=== PATIENT | male | born 1945 | race Caucasian/White ===

== ENCOUNTER 2017-06-18 19:48 | Observation (INO) | payer BC ==
[2017-06-18] MEDS ORDERED: NS 0.9% 1000 ML* 1,000 ML IV ONE (20:16)
--- NOTE | 2017-06-18 20:43 | RAD ---
INDICATION: Syncope COMPARISON: None TECHNIQUE: An AP portable view obtained at 2027 hours is submitted. FINDINGS: Bones/Soft Tissues: There are no acute bony findings. Cardiomediastinal: The cardiomediastinal silhouette is normal. Lungs: There are no infiltrates. Pleura: There are no pleural effusions. Other: None IMPRESSION: NO ACTIVE DISEASE
--- NOTE | 2017-06-18 20:43 | RAD ---
INDICATION: Syncope COMPARISON: CT September 27, 2013 TECHNIQUE: Noncontrast axial source images were acquired from the skull base to the vertex. FINDINGS: Ventricles/sulci: There is cortical atrophy with compensatory dilatation of the CSF spaces. Brain parenchyma: There are no acute appearing focal parenchymal findings. There is encephalomalacia in remote right frontal and right occipital infarcts. There is a tiny lacunar type infarct in the right caudate nucleus. There are no additional significant focal parenchymal findings. Intracranial hemorrhage:None. Extra-axial spaces: There are no abnormal extra axial fluid collections or evidence of extra-axial mass. Calvarium: There is no calvarial fracture or other calvarial abnormality. Scalp: There is no evidence of scalp or extracalvarial soft tissue abnormality. Paranasal sinuses/mastoid: The paranasal sinuses and mastoid air cells are clear. Other: None. IMPRESSION: REMOTE RIGHT FRONTAL AND OCCIPITAL INFARCTS. NO ACUTE FINDINGS
[2017-06-18 21:04] LABS: ABS Basophils 0 10^3/ul (0-0.2); ABS Eosinophils 0.3 10^3/ul (0-0.6); ABS Lymphocytes 2.1 10^3/ul (1.0-4.8); ABS Monocytes 0.7 10^3/ul (0-0.8); ABS Neutrophils 6.9 10^3/ul (1.5-7.7); ABS Nucleated RBC 0 10^3/ul; Eosinophil % 3.4 % (0-6); Hematocrit 39 % (42-52); Lymphocyte % 20.6 % (25-47); Mean Corpuscular HGB Conc 34 g/dl (31-36); Mean Corpuscular Hemoglobin 32 pg (27-31); Mean Corpuscular Volume 94 fL (80-94); Mean Platelet Volume 8.5 um3 (7.4-10.4); Nucleated Red Blood Cells % 0; Platelet Count 223 10^3/ul (150-450); Red Blood Count 4.12 10^6/ul (4.0-5.4); Red Cell Distribution Width 15 % (10.5-15)
[2017-06-18 21:16] LABS: INR 1.1 (0.77-1.02)
[2017-06-18 21:17] LABS: EGFR Non-African American 42.1 (>60)
--- NOTE | 2017-06-18 21:36 | ED ---
Jaren Yap Tecjoon, scribnicholas for Dada Sánchez MD on 06/18/17 at 2014 . 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 Patients seizure was witnessed by Dr. Nava. Patient has no history of seizure, but does have a hx of CVA. Patient states that he [place] when he suddenly felt dizzy. Patients cites that patient did not shake, but curled up and passed out. There was no postictal period nor any urinary incontinence. The pain is rated 0/ 10 in severity. Symptoms aggravated by nothing. Symptoms alleviated by nothing. On arrival, patient states that he is asymptomatic, aside from some slowed speech. - History Of Current Complaint Chief Complaint: EDSeizure Time Seen by Provider: 06/18/17 19:56 Hx Obtained From: Patient Onset/Duration: Still Present Timing: Intermittent Episode Lasting Context: Witnessed, Loss Of Consciousness Activity At Onset: At Rest Associated Head Trauma: No Aggravating Factor(s): Nothing Alleviating Factor(s): Nothing Associated Signs And Symptoms: Negative - urinary incontinence, Other - dizziness, LOC - Allergies/Home Medications Allergies/Adverse Reactions: Allergies Allergy/AdvReac Type Severity Reaction Status Date / Time indomethacin Allergy Unknown Verified 06/18/17 19:56 Reaction Details Sulfa (Sulfonamide Allergy Rash And Verified 06/18/17 19:56 Antibiotics) Itching Home Medications: Home Medications Calcium Carbonate CHEW TAB* [Tums*] 1,000 mg PO BID 06/18/17 [History Confirmed 06/18/17] Donepezil TAB* [Aricept 5 MG TAB*] 5 mg PO DAILY 06/18/17 [History Confirmed 08/30] Escitalopram (NF) [Lexapro 10 mg (NF)] 10 mg PO DAILY 06/18/17 [History Confirmed 06/18/17] Insulin GLARGINE(*) [Lantus(*)] 36 units SUBCUT QAM 06/18/17 [History Confirmed 06/18/17] Potassium Chlor TAB* [Klor Con ER TAB*] 10 meq PO DAILY 06/18/17 [History Confirmed 06/18/17] metFORMIN* [Glucophage 500 MG TAB *] 1,000 mg PO QPM 06/18/17 [History Confirmed 06/18/17] metFORMIN* [Glucophage 500 MG TAB *] 500 mg PO QAM 06/18/17 [History Confirmed 06/18/17] PMH/Surg Hx/FS Hx/Imm Hx Previously Healthy: No Endocrine/Hematology History: Reports: Hx Anticoagulant Therapy - Pradaxa, Hx Diabetes Denies: Hx Thyroid Disease Cardiovascular History: Reports: Hx Coronary Artery Disease, Hx Hypercholesterolemia - HLD, Hx Hypertension - PT. STATES CONTROLLED WITH MEDS, Hx Peripheral Vascular Disease - FEM BYPASS RIGHT LEG, Other Cardiovascular Problems/Disorders - A FIB Denies: Hx Congestive Heart Failure, Hx Deep Vein Thrombosis, Hx Myocardial Infarction, Hx Pacemaker/ICD Respiratory History: Reports: Hx Sleep Apnea - DX 2014, Other Respiratory Problems/Disorders - FORMER SMOKER Denies: Hx Asthma, Hx Chronic Obstructive Pulmonary Disease (COPD), Hx Lung Cancer, Hx Pneumonia, Hx Pulmonary Embolism GI History: Reports: Hx Irritable Bowel - DIARRHEA Denies: Hx Gall Bladder Disease, Hx Gastrointestinal Bleed, Hx Ulcer, Hx Urosepsis History: Denies: Hx Kidney Stones, Hx Renal Disease Musculoskeletal History: Reports: Hx Arthritis - OSTEOARTHRITIS, Hx Osteoporosis , Other Musculoskeletal History - HX OF GOUT Comment Only: Hx Rheumatoid Arthritis - R/O Sensory History: Reports: Hx Cataracts - LEFT, Hx Contacts or Glasses - READING Denies: Hx Hearing Aid Opthamlomology History: Reports: Hx Cataracts - LEFT, Hx Contacts or Glasses - READING Neurological History: Denies: Hx Dementia, Hx Migraine, Hx Seizures, Hx Transient Ischemic Attacks (TIA) Psychiatric History: Reports: Hx Anxiety Denies: Hx Depression, Hx Panic Disorder, Hx Schizophrenia, Hx Bipolar Disorder - Surgical History Surgery Procedure, Year, and Place: POPLITEAL BYPASS RLE WITH VEIN HARVENT FROM LEFT ARM @ [facility] ON 04/14/2013. RIGHT KNEE SCOPING [facility] [place] 2003. ANGIOGRAM WITH STAR CLOSURE-08/21/2013 and 07/23/14-INFO ENCLOSED Hx Anesthesia Reactions: No Infectious Disease History: No Infectious Disease History: Reports: Hx Shingles - hx of x2 Denies: Hx Clostridium Difficile, Hx Hepatitis, Hx Human Immunodeficiency Virus (HIV), Hx of Known/Suspected MRSA, Hx Tuberculosis, Hx Known/Suspected VRE , Hx Known/Suspected VRSA, History Other Infectious Disease, Traveled Outside the [place] in Last 30 Days - Family History Known Family History: Positive: Cardiac Disease, Hypertension - Social History Lives: With Family Alcohol Use: None Hx Substance Use: No Substance Use Type: Reports: None Hx Tobacco Use: Yes Smoking Status (MU): Former Smoker Type: Cigarettes Amount Used/How Often: 1 PPD Length of Time of Smoking/Using Tobacco: 40 YRS Have You Smoked in the Last Year: No Review of Systems Negative: Fever Negative: incontinence Neurological: Other - dizziness Positive: Syncope All Other Systems Reviewed And Are Negative: Yes Physical Exam - Summary Physical Exam Summary: VITAL SIGNS: Reviewed. GENERAL: Patient is a well-developed and nourished male who is lying comfortable in the stretcher. Patient is not in any acute respiratory distress. HEAD AND FACE: No signs of trauma. No ecchymosis, hematomas or skull depressions. No sinus tenderness. EYES: PERRLA, EOMI x 2, No injected conjunctiva, no nystagmus. EARS: Hearing grossly intact. Ear canals and tympanic membranes are within normal limits. MOUTH: Oropharynx within normal limits. NECK: Supple, trachea is midline, no adenopathy, no JVD, no carotid bruit, no c- spine tenderness, neck with full ROM. CHEST: Symmetric, no tenderness at palpation LUNGS: Clear to auscultation bilaterally. No wheezing or crackles. CVS: Regular rate and rhythm, S1 and S2 present, no murmurs or gallops appreciated. ABDOMEN: Abd distension EXTREMITIES: +1-2 bilateral pitting edema NEURO: Alert and oriented x 3. No acute neurological deficits. Speech is normal and follows commands. SKIN: Dry and warm Triage Information Reviewed: Yes Vital Signs On Initial Exam: Initial Vitals Temp Pulse Resp BP Pulse Ox 96.8 F 58 12 128/51 92 06/18/17 19:51 06/18/17 19:51 06/18/17 19:51 06/18/17 19:51 06/18/17 19:51 Vital Signs Reviewed: Yes Diagnostics - Vital Signs Vital Signs Temp Pulse Resp BP Pulse Ox 06/18/17 19:51 96.8 F 58 12 128/51 92 - Laboratory Result Diagrams: 06/18/17 20:45 06/18/17 20:45 Lab Statement: Any lab studies that have been ordered have been reviewed, and results considered in the medical decision making process. - Radiology CXR Xray Interpretation: No Acute Changes - CXR reveals, per radiologist, IMPRESSION : NO ACTIVE DISEASE. ED physician has reviewed this radiology report. Radiology Interpretation Completed By: Radiologist - CT CT Brain CT Interpretation: Positive (See Comments) - CT Brain reveals, per radiologist, IMPRESSION: REMOTE RIGHT FRONTAL AND OCCIPITAL INFARCTS. NO ACUTE FINDINGS ED physician has reviewed this radiology report. 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 Patient has no history of seizure, but does have a hx of CVA. Patient states that he was having dinner [place] the [employer] [place] when he suddenly felt dizzy. Patients cites that patient did not shake, but curled up and passed out. An EKG, taken 2038, reveals Sinus Bradycardia (56 BPM), Normal axis, normal interval, no ischemic changes. CXR reveals, per radiologist, IMPRESSION: NO ACTIVE DISEASE. ED physician has reviewed this radiology report. CT Brain reveals, per radiologist, IMPRESSION: REMOTE RIGHT FRONTAL AND OCCIPITAL INFARCTS. NO ACUTE FINDINGS. ED physician has reviewed this radiology report. Bloodwork Obtained. Urinalysis Obtained. We discussed patient care with Dr. Bautista (Hospitalist) and they agreed to admit the patient. Patient will be admitted with a dx of syncope. The patient is agreeable with this plan. - Diagnoses Provider Diagnoses: Syncope - Physician Notifications Discussed Care of Patient With: Minor Bautista - Hospitalist Time Discussed With Above Provider: 21:33 - We discussed patient care with Dr. Bautista (Hospitalist) and they agreed to admit the patient Instructed by Provider To: Admit As Inpatient Discharge - Sign-Out/Discharge Documenting (check all that apply): Discharge - admitted - Discharge Plan Condition: Stable Disposition: ADMITTED TO [facility] Referrals: Sera Tao MD [Primary Care Provider] - The documentation as recorded by the Jaren haas Tecjoon accurately reflects the service I personally performed and the decisions made by mi, Dada Sánchez MD.
[2017-06-18] MEDS ORDERED: Dextrose 50% Syringe 50 ML* 25 GM/50 ML SYRINGE IV PUSH PRN (23:05)
[2017-06-19] MEDS: CMCS:Dabigatran CAP(NF) 150 MG CAP PO SCH ×3 (00:50→22:00)
[2017-06-19] MEDS: Insulin LISPRO* 1 UNITS UNIT SUBCUT SCH ×3 (07:50→16:52)
[2017-06-19] MEDS ORDERED: Magnesium Sulfate 2 GM IV* 2 GM/50 ML BAG IVPB ONE (08:21)
[2017-06-19] MEDS: Insulin GLARGINE(*) 1 UNITS UNIT SUBCUT SCH (08:21)
[2017-06-19] MEDS: Citalopram TAB* 20 MG PO SCH (08:22)
[2017-06-19] MEDS: Calcium Carbonate CHEW TAB* 500 MG (TUMS) PO SCH ×2 (08:22→22:01)
[2017-06-19] MEDS: Bumetanide TAB* 1 MG PO SCH (08:22)
[2017-06-19] MEDS: Valsartan TAB* 160 MG PO SCH (08:22)
[2017-06-19] MEDS: Hydrochlorothiazide TAB* 25 MG PO SCH (08:22)
[2017-06-19] MEDS: Magnesium Oxide TAB* 400 MG PO SCH (08:23)
[2017-06-19] MEDS: Donepezil TAB* 5 MG PO SCH (08:23)
[2017-06-19] MEDS: metFORMIN* 500 MG TAB PO SCH (08:23)
[2017-06-19] MEDS: Allopurinol TAB* 300 MG PO SCH (08:23)
[2017-06-19] MEDS: Lactobacillus Acidophilu (GG)* 1 CAP CAP PO SCH (08:23)
[2017-06-19] MEDS: amLODIPine TAB* 5 MG PO SCH (08:23)
[2017-06-19] MEDS: Potassium Chlor TAB* 10 MEQ TAB.ER PO SCH (08:23)
[2017-06-19] MEDS: Atenolol TAB* 25 MG PO SCH (08:36)
[2017-06-19] MEDS ORDERED: Atenolol TAB* 50 MG PO SCH (09:00)
[2017-06-19] MEDS ORDERED: CMCS:Dabigatran CAP(NF) 150 MG CAP PO SCH (09:00)
[2017-06-19 11:06] LABS: Urine Appearance Clear; Urine Blood Negative (Negative); Urine Color Straw; Urine Ketones Negative (Negative); Urine Protein Negative (Negative); Urine Specific Gravity 1.006 (1.010-1.030); Urine Urobilinogen Negative (Negative)
--- NOTE | 2017-06-19 12:04 | PN ---
Subjective Date of Service: 06/19/17 Interval History: Pt had a syncopal episodes last night at 19:30 [place] and waiting for his green party to arrive to have dinner. He felt hot and flushed and dizzy before he collapsed. LOC for approx 30 sec then recovered without confusion but R facial droop was noted. Before the even pt did not anything for over 8 hrs. Had no alcohol. BG at 109 checked by EMT's Telem showing sinus rishi today with PVC's , Atenolol's dose was held Objective Active Medications: Allopurinol (Zyloprim Tab*) 300 mg PO QAM [facility] Last Admin: 06/19/17 08:23 Dose: 300 mg Amlodipine Besylate (Norvasc Tab*) 5 mg PO DAILY [facility] Last Admin: 06/19/17 08:23 Dose: 5 mg Atenolol (Tenormin Tab*) 25 mg PO QAM [facility] Last Admin: 06/19/17 08:36 Dose: Not Given Atorvastatin Calcium (Lipitor*) 20 mg PO QPM [facility] Bumetanide (Bumex Tab*) 1 mg PO DAILY [facility] Last Admin: 06/19/17 08:22 Dose: 1 mg Calcium Carbonate (Tums*) 1,000 mg PO BID [facility] Last Admin: 06/19/17 08:22 Dose: 1,000 mg Citalopram Hydrobromide (Celexa Tab*) 20 mg PO DAILY [facility] Last Admin: 06/19/17 08:22 Dose: 20 mg Dabigatran (Pradaxa Cap(Nf)) 150 mg PO BID [facility] Last Admin: 06/19/17 08:22 Dose: 150 mg Dextrose (D50w Syringe 50 Ml*) 12.5 gm IV PUSH .FOR FS < 60 - SS PRN PRN Reason: FS < 60 Donepezil HCl (Aricept Tab*) 5 mg PO DAILY [facility] Last Admin: 06/19/17 08:23 Dose: 5 mg Hydrochlorothiazide (Hydrodiuril Tab*) 12.5 mg PO QAM [facility] Last Admin: 06/19/17 08:22 Dose: 12.5 mg Insulin Glargine (Lantus(*)) 36 units SUBCUT QAM [facility] Last Admin: 06/19/17 08:21 Dose: 36 unit Insulin Human Lispro (Humalog*) 0 units SUBCUT AC [facility] PRN Reason: Protocol Last Admin: 06/19/17 07:50 Dose: Not Given Lactobacillus Rhamnosus (Culturelle*) 1 cap PO DAILY [facility] Last Admin: 06/19/17 08:23 Dose: 1 cap Magnesium Oxide (Magox 400 Tab*) 400 mg PO DAILY [facility] Last Admin: 06/19/17 08:23 Dose: 400 mg Metformin HCl (Glucophage*) 500 mg PO QAM [facility] Last Admin: 06/19/17 08:23 Dose: 500 mg Metformin HCl (Glucophage*) 1,000 mg PO QPM [facility] Potassium Chloride (Klor Con Er Tab*) 10 meq PO DAILY [facility] Last Admin: 06/19/17 08:23 Dose: 10 meq Valsartan (Diovan Tab*) 320 mg PO QAM [facility] Last Admin: 06/19/17 08:22 Dose: 320 mg Vital Signs - 8 hr 06/19/17 06/19/17 07:26 11:09 Temperature 97.7 F 97.3 F Pulse Rate 53 52 Respiratory 20 20 Rate Blood Pressure 137/51 122/48 (mmHg) O2 Sat by Pulse 96 96 Oximetry Oxygen Devices in Use Now: None Appearance: 71 yo M in nAD, AAOx3 Eyes: No Scleral Icterus, PERRLA Ears/Nose/Mouth/Throat: NL Teeth, Lips, Gums, Mucous Membranes Moist Neck: NL Appearance and Movements; NL JVP, Trachea Midline Respiratory: Symmetrical Chest Expansion and Respiratory Effort, Clear to Auscultation Cardiovascular: NL Sounds; No Murmurs; No JVD, RRR Abdominal: NL Sounds; No Tenderness; No Distention, No Hepatosplenomegaly Lymphatic: No Cervical Adenopathy Extremities: No Clubbing, Cyanosis, - - trace ankle edema b/l Skin: No Nodules or Sclerosis Neurological: Alert and Oriented x 3, NL Muscle Strength and Tone, - - Slight R facial droop Result Diagrams: 06/18/17 20:45 06/18/17 20:45 Assess/Plan/Problems-Billing Assessment: 71 yo M with h/o PAF, subsequent cardioembolic CVA with hemorrhagic extension in 2013, DM2 with CKD3 (suspect due to DM2)presents after a syncopal episode - Patient Problems (1) Syncope and collapse Comment: pt had prodromal feeling of flushed and dizziness had been bradycardic and his Mg is low ?new R facial droop Differential: vaso-vagal(has not eatan for a long time), CVA, arrythmia Consulted neurology. Also Dr. Deleon will see pt from cardiology in AM. Echo ordered (2) DM2 (diabetes mellitus, type 2) Comment: cont metformin , Lantus ,ISS (3) Bradycardia Comment: ? if symptomatic Will ambulate pt and record max HR Cardiology consult ordered For now cont Atenolol with holfd parameters (4) Hypomagnesemia Comment: replacing PO/IV (5) FLORIN (obstructive sleep apnea) Comment: Pt stated that he feels very tired every AM. 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
--- NOTE | 2017-06-19 15:19 | CONS ---
CC: Dr. Sera Tao NEUROLOGY CONSULTATION REPORT: DATE OF CONSULT: 06/19/17 REQUESTING PHYSICIAN: Dr. Jones. PRIMARY CARE PHYSICIAN: Dr. Sera Tao. REASON FOR CONSULT: Episode of loss of consciousness. HISTORY OF PRESENT ILLNESS: The patient is a 71-year-old right-handed male with history of previous strokes, who presented last night with an episode of loss of consciousness. The patient was in the [place] with his and friends. He had not eaten anything after breakfast until the dinnertime. One of the guests was arriving late so the dinner was delayed. The patient started to feel hot at some point and hungry and while he was sitting on a chair, he gradually felt dizzy. Apparently, he then slumped forward and had a brief duration of loss of consciousness was very short. He seemed to have a bit of tensing up of the upper extremities as he lost consciousness with some jerky movements. He regained consciousness quickly (he himself even thinks that he did not completely loss consciousness) and there was no postictal confusion. He was brought to the hospital; there was a question of some facial droop on the right side, I think first noted by the triage nurse in the ED. The patient has a history of stroke, first one about 4 years ago which presented with left hemianopia. In the past few months also, it was noted that he was having more difficulty with his speech such as difficulty with finding words and another MRI at that point revealed another new stroke in the frontal area. He is on anticoagulation. PAST MEDICAL HISTORY: 1. As mentioned above, the history is significant for previous strokes. 2. Hypercholesterolemia. 3. Hypertension. 4. Obstructive sleep apnea. 5. History of problem with memory, currently on Aricept. 6. History of cataracts. 7. Peripheral vascular disease. PAST SURGICAL HISTORY: 1. History of femoropopliteal bypass. 2. Right knee arthroscopy. ALLERGIES: To INDOMETHACIN and SULFA. MEDICATIONS: 1. Lantus, 30 units 2. Atenolol 25 mg daily 3. Amlodipine 5 mg daily 4. Lexapro 10 mg daily 5. Metformin 1000 mg at night and 500 mg in the morning 6. Diovan 7. Aricept 5 mg daily 8. Allopurinol 300 mg daily 9. Dabigatran 150 mg twice a day FAMILY HISTORY: Positive for cardiac disease and hypertension. SOCIAL HISTORY: The patient lives with at home. He is a retired pharmacist. He does not drink or use drugs. History of 1 pack per day of smoking for 40 years in the past PHYSICAL EXAM: Blood pressure 122/48, temperature 97.3, respiratory rate 20, pulse rate 52. Heart has regular rate and rhythm. Lungs are clear. In general appearance, the patient is not in acute distress. On neurological exam , pupils are symmetric and reactive to light. Extraocular movements are intact. Visual castro are intact at least by confrontation even though there was a history of hemianopia on the left side after his stroke. Face has a slightly decreased nasolabial fold on the right side. V1 to V3 is intact to light touch and pinprick. Tongue is in midline. Palate elevates upwards. Strength is 5/5 throughout. There is no pronator drift. Rapid alternating movements are intact. Sensation is intact to light touch, pinprick, and vibration in the upper and lower extremities. Deep tendon reflexes are 2+ in the upper end of the extremities and are symmetric. DIAGNOSTIC STUDIES/LAB DATA: Sodium 138, potassium 4.7, BUN 31, creatinine 1.62. Hemoglobin A1c 6.6 that was back in December 2016. Glucose 131. Magnesium 1.5. INR 1.1. Imaging: The brain CT shows remote right frontal and occipital infarcts with no acute findings. ASSESSMENT AND PLAN: The patient is a 71-year-old male with history of previous stroke, who presented with an episode of loss of consciousness, which because of the presyncopal symptoms and the short duration of that, as well as lack of postictal symptoms is more consistent with syncope. He may also had a mild syncopal convulsion as a result. I do not have a high suspicion for a new stroke because of the history of this episode and the exam. About the facial droop on the right side, we looked at some of his pictures on his 's phone and it seems like the droop on the right nasolabial fold was present in the past , and it may have been exacerbated by hypoperfusion during the syncopal episodes. Similarly, I do not have a high suspicion that this episode was a primary seizure, but rather a syncopal convulsion as mentioned before. Maybe an EEG can be considered but can be done as outpatient. [id number]/[facility] #: [id number] [facility]
--- NOTE | 2017-06-19 15:36 | HP ---
CC: Dr. Sera Tao; Dr. Lovell. ADMISSION HISTORY AND PHYSICAL: DATE OF ADMISSION: 06/18/17 CHIEF COMPLAINT: Loss of consciousness. HISTORY OF PRESENT ILLNESS: Mr. Mondragon is a 71-year-old man with history of stroke and dementia who had a witnessed loss of consciousness [place]. Apparently, he was sitting with his and he states he felt dizzy and strange and then he moved his arms in a strange way upward and lost consciousness in the chair. A physician in the community was in the area in the room and helped lower him to the ground. No seizure activity was noted and he came back to the normal level of consciousness within 30 seconds to 1 minute. He had no postictal confusion. There was a concern about right facial droop that was seen by a nurse upon arrival to the emergency room. The endorse there was a subtle right facial droop in the lower cheek, which is now resolved. Patient has not had other episodes of loss of consciousness. No history of seizures. The patient has had a history of 3 strokes. The first 2 occurred shortly after being diagnosed with atrial fibrillation when he was not anticoagulated, around August of 2013. The third stroke visible only on MRI, occurred in December 2016 when the patient was already anticoagulated. 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 PAST SURGICAL HISTORY: He has surgical history of the right popliteal bypass in 2013. MEDICATIONS: Medication on admission are: 1. Allopurinol 300 mg p.o. q.a.m. 2. Norvasc 5 mg p.o. q. day. 3. Atenolol 25 mg p.o. q.a.m. 4. Lipitor 20 mg q.p.m. 5. Bumex 1 mg p.o. q.a.m. 6. Calcium carbonate 1000 mg p.o. b.i.d. 7. Pradaxa 150 mg p.o. b.i.d. 8. Aricept 5 mg p.o. q.h.s. 9. Lexapro 10 mg p.o. q. day. 10. Insulin Lantus 36 units subcu q. day. 11. Probiotic 1 tab p.o. q. day. 12. Glucophage 1000 mg p.o. in the evening and 500 mg p.o. in the morning. 13. Potassium chloride 10 mEq p.o. q. day. 14. Valsartan/hydrochlorothiazide 325/12.5 1 tab p.o. q.a.m. ALLERGIES: SULFA and INDOCIN. FAMILY HISTORY: Father of kidney failure. Mother at age 74 of sepsis. His brother had of melanoma. SOCIAL HISTORY: He is a retired pharmacist. He is . He has 2 children. His healthcare proxy is his . He quit tobacco in 2012 before his bypass surgery. He does not drink alcohol or use recreational drugs. REVIEW OF SYSTEMS: Patient denies any fevers, weight loss, and anorexia. Patient denies any cough or shortness of breath. Patient denies any chest pain or palpitations. The patient denies any hematuria or dysuria. Remainder of his 14 point review of systems is negative other than mentioned in the HPI. PHYSICAL EXAMINATION GENERAL: He is alert, in no acute distress. VITAL SIGNS: Temperature is 36.0, pulse 58, respirations 19, blood pressure 129 /49, oxygen saturation 96%. HEENT: Head is normocephalic atraumatic. Sclerae anicteric. Pupils are equal , round and reactive to light and accommodation. Oropharynx is moist. No lesions. NECK: No JVD. No carotid bruit. No thyromegaly. LUNGS: Clear to auscultation bilaterally. HEART: Bradycardic, regular, no murmurs. ABDOMEN: Distended, soft, nontender. Positive bowel sounds. No tenderness. No masses. EXTREMITIES: 1+ pitting edema bilaterally. Dorsalis pedis pulses are absent bilaterally. NEUROLOGIC: Cranial nerves II through XII were intact. Motor strength is 5/5 throughout. He is oriented to place and person, but not to the day of the week. DIAGNOSTIC STUDIES/LAB DATA: Sodium 138, potassium 4.7, chloride 101, bicarb 21, BUN 31, creatinine 1.62, glucose 131, calcium 9.8, magnesium 1.5, lactic acid 1.2, TSH 4.94, white count 10.0, hemoglobin 20.0, hematocrit 39%, platelets are 223. INR 1.1, PTT 56.4. EKG, sinus bradycardia. No ischemic ST or T wave changes. Chest x-ray is negative for infiltrates or effusion. Head CT shows no new acute bleeds or infarcts. There is an old right frontal and occipital infarct, which were both seen back in 2013 on MRI. ASSESSMENT AND PLAN: The patient is a [id number] presenting with syncope. The differential would include hypoglycemia, although states he had a fingerstick of 110 when ambulance arrived, he also could have bradycardiac or tachycardic arrhythmia, hypotension or seizure. Stroke is less likely given that few stroke syndromes cause generalize loss of consciousness, although this is possible to have a deep brain stem stroke that can cause this. The patient will be admitted to hospital, observed on telemetry, we will wait and see if he has tachy or bradycardic arrhythmias. Consideration could be given to stopping his atenolol as he is on a low dose and this can cause syncope in older people. I discussed the case with Dr. Brown of Neurology and he agreed that seizure was in differential. The patient should have outpatient EEG and MRI, but this is not immediately concerning enough that he be held in the hospital over the weekend until Wednesday to have those tests done as long as nothing further happens neurologically. For diabetes, we will continue him on his Lantus and metformin and give him fingersticks extra insulin if necessary. For DVT prophylaxis, the patient is already on Pradaxa for paroxysmal atrial fibrillation, does not require any further anticoagulation. Code status is full. [id number]/[facility] #: [id number] MTDD
[2017-06-19] MEDS ORDERED: Atorvastatin* 20 MG TAB PO SCH (18:00)
[2017-06-19] MEDS ORDERED: metFORMIN* 500 MG TAB PO SCH (18:00)
--- NOTE | 2017-06-19 21:43 | CONS ---
CC: Sera Tao MD CARDIOLOGY CONSULTATION: DATE OF CONSULT: 06/19/17 CONSULT REQUESTING PHYSICIAN: Jeane Jones MD REASON FOR CARDIOLOGY CONSULTATION: Bradycardia and syncope. HISTORY OF PRESENT ILLNESS: I was kindly asked to see this patient in cardiology consultation by Dr. Jones because the patient was admitted with syncope and was found to be bradycardic. He has a history of prior paroxysmal atrial fibrillation, which is well suppressed with atenolol and his heart rate has been demonstrating sinus bradycardia on telemetry in the 50s to 60s since being admitted to [facility] yesterday. The patient has had prior stroke, so has some expressive aphasia; however, his history is augmented by his who was present at his bedside. Essentially, the patient last night at 7:20 p.m. was at the [employer] and had not eaten for 8 hours. He was waiting for some people to arrive and told his that he felt dizzy, his eyes rolled back and he had neuro convulsive syncope with some seizure type movements. A neurosurgeon happened to be in the area and immediately attended the patient. His syncope apparently spontaneously resolved within 30 seconds and his symptoms have not recurred. The patient is amnestic to the event. The patient denies chest pain. He does not have shortness of breath, per se, but is not active. His and he estimate he would become short of breath if he were to walk one flight of stairs. He has not had a prior syncopal episode. Fingerstick at the time of this isyncopal ncident was 109 per EMS. PAST MEDICAL HISTORY: Significant for 3 strokes with the first one approximately 4 years ago, presenting with left hemianopia. Sometime between March and October 2016, he was having more difficulty with aphasia and it was revealed that a MRI demonstrated another frontal area stroke (the patient had missed several days of his oral anticoagulant at that time). He also has a history of hyperlipidemia,diabetes, gout, anxiety/depression, chronic stomach pain of unclear etiology, hypertension, obstructive sleep apnea, although the patient while he uses BiPAP has not had a formal sleep evaluation, but is now willing to have that. He has a history of PVD status post right fem-pop bypass in 2013. It was apparently as part of that PVD preop evaluation that he was found to have paroxysmal atrial fibrillation which is being suppressed with Atenolol. Unclear if he had other cardiac evaluation at that time. He has a history of some memory problems and is on Aricept. MEDICATIONS: Outpatient medications: 1. Lantus 30 units once a day. 2. Atenolol 25 mg once a day. 3. Norvasc 5 mg once a day. 4. Lexapro 10 mg once a day. 5. Metformin 1 g at night and 500 mg in the morning. 6. Diovan. 7. Aricept 5 mg once a day. 8. Allopurinol 300 mg once a day. 7. Pradaxa 150 mg p.o. b.i.d. ALLERGIES TO MEDICATIONS: Reported to be INDOMETHACIN and SULFA, but they are questionable reactions. He denies shrimp or seafood allergies. FAMILY HISTORY: His mother had a coronary artery bypass surgery and cancer. There is a family history of diabetes and Parkinson's disease. No family history of stroke. SOCIAL HISTORY: The patient smoked 1-1/2 pack of cigarettes per day for approximately 50 years and quit in November 2012. He previously drank quite a bit of beer, but stopped drinking alcohol in 2008. He does not use illicit drugs. He has been for 49 years. 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 He does not do exercise. REVIEW OF SYSTEMS: The patient has had 3 strokes, again the last once occurred some time between March and October 2016 as described above. It sounds like he had missed several days of his oral anticoagulant at that time. He denies cancer, vomiting blood, coughing up blood, bright red blood per rectum, bleeding stomach ulcers, renal calculi, cholelithiasis, asthma, emphysema, pneumonia, tuberculosis. He has had a home sleep study which suggested sleep apnea, but he refused a formal sleep evaluation, so he has been empirically placed on BiPAP therapy. He does not use home oxygen. He has diabetes. He has hypertension. Denies prior [place], congestive heart failure, cardiac surgery, cardiac murmurs, palpitations including at the time of his paroxysmal atrial fibrillation at the time of his right fem-pop bypass in 2013 and again that PAF is well suppressed with atenolol use. He has a history of anxiety and depression which is improved with Lexapro use. 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 His color checker roving or yarn is Dr. Jordan in [place], [place]. He does have left lower extremity claudication symptoms. He denies pulmonary emboli, deep venous thrombosis. He does again have a history of heartburn. He occasionally has peripheral edema. All other review of systems are negative x14 except as described above. PHYSICAL EXAM: Vital Signs: Height 5 feet 9, weight 224 pounds. Temperature is 97.3 degrees Fahrenheit, blood pressure is 132/57 to 107/47, pulse 52 to 65 , O2 saturation 97%. On general exam, he is a pleasant gentleman with some evidence of expressive aphasia and perhaps at least mild dementia in no acute distress. HEENT: Cranium is normocephalic and atraumatic. He has moist mucosal membranes. He seems to have some perhaps early degree of Parkinson's facies, but that is not definitive. Neck veins are not distended. There is a right carotid bruit. Visible skin, warm and perfused. Affect is appropriate. He appears oriented. Minor kyphoscoliosis on back exam, likely age related. Lungs are clear to auscultation. No wheezes. No rales. Cardiac Exam: S1 and S2. Regular rate. No significant murmurs, rubs nor gallops. PMI is nondisplaced. Abdomen is soft and nondistended, appears benign. Extremities: With trivial peripheral edema. Pulses appear grossly intact. DIAGNOSTIC STUDIES/LAB DATA: The patient had a transesophageal echocardiogram completed on 09/13/13 that showed normal left ventricular ejection fraction of 55% to 60% with mild aortic insufficiency, mild mitral regurgitation, mild tricuspid regurgitation, grade 3 atheroma in the descending aorta. No shunting. The patient had carotid artery duplex on 06/09/17, which showed right ICA stenosis of 50% to 69%. White blood cell count 10, hematocrit 39, platelet count 223,000. INR 1.10. Sodium 138, potassium 4.7, chloride 101, bicarbonate 31, BUN 31, creatinine 1.62 and he does have a history of some renal insufficiency including a creatinine of 1.9 on 02/01/17. Magnesium 1.5, ALT 19, TSH 4.94. Troponin 0.01. A 12-lead EKG is reviewed from 06/18/172038, which showed sinus bradycardia at 56 BPM with first degree AV block, DC interval of 209 milliseconds. IMPRESSION: Mr. Romero is a pleasant 71-year-old gentleman with a history of paroxysmal atrial fibrillation with prior multiple cardioembolic cerebrovascular accidents who is maintained on atenolol with good suppression of atrial fibrillation. He apparently had syncope yesterday with some neuro convulsive features. It does not appear that this was a primary dysrhythmic episode with spontaneous resolution, and review of telemetry shows that his heart rate is actually ranging in the 60s with no hard indications met for pacemaker at this ti,me. He had not eaten for 8 hours, so this may have been a vasovagal episode and he has not had a formal sleep study done and is using the BiPAP empirically so incompletely treated FLORIN may have contributed as well. RECOMMENDATIONS: 1. I agree with thorough obstructive sleep apnea evaluation as an outpatient. 2. For now, I think it is reasonable to continue the low dose atenolol. I would recommend ambulating the patient and as long as his heart rate does increase appropriately with exercise, I do not feel pacemaker is required at this time. If in the future he would be excessively bradycardic with true symptoms, would then stop the atenolol and could consider another antiarrhythmic such as propafenone pending establishment of normal LV function and ischemic evaluation. 3. I will arrange for outpatient cardiac chemical nuclear stress test (as the patient is not able to exercise vigorously given his PVD with persistent claudication symptoms) and a MCOT monitor as well as an echocardiogram (if echocardiogram not done while the patient is hospitalized). 4. Recommend to keep magnesium greater than 2. 5. Other management as per the hospitalist medicine service including regarding his diabetes and sleep apnea as per Dr. Jones with whom I have discussed the case. I have also discussed the case with the patient and his and they are in agreement with these recommendations. Dear Dr. Jeane Jones, thank you very much for asking me to see the patient for cardiology consultation. Please do not hesitate to contact me if you have any questions or concerns regarding the patient's cardiovascular consultative care. [id number]/[facility] #: [id number] OTIS
[2017-06-20 06:08] LABS: ABS Basophils 0 10^3/ul (0-0.2); ABS Eosinophils 0.4 10^3/ul (0-0.6); ABS Lymphocytes 2.6 10^3/ul (1.0-4.8); ABS Monocytes 0.8 10^3/ul (0-0.8); ABS Neutrophils 4.5 10^3/ul (1.5-7.7); ABS Nucleated RBC 0 10^3/ul; Eosinophil % 4.3 % (0-6); Hematocrit 35 % (42-52); Hemoglobin 11.8 g/dl (14.0-18.0); Lymphocyte % 31.3 % (25-47); Mean Corpuscular HGB Conc 33 g/dl (31-36); Mean Corpuscular Hemoglobin 31 pg (27-31); Mean Corpuscular Volume 94 fL (80-94); Mean Platelet Volume 8.8 um3 (7.4-10.4); Nucleated Red Blood Cells % 0.1; Platelet Count 184 10^3/ul (150-450); Red Blood Count 3.77 10^6/ul (4.0-5.4); Red Cell Distribution Width 15 % (10.5-15); White Blood Count 8.2 10^3/ul (3.5-10.8)
[2017-06-20 06:27] LABS: EGFR Non-African American 50.2 (>60)
[2017-06-20] MEDS: Insulin LISPRO* 1 UNITS UNIT SUBCUT SCH ×2 (08:19→11:29)
[2017-06-20] MEDS: Valsartan TAB* 160 MG PO SCH (08:39)
[2017-06-20] MEDS: Hydrochlorothiazide TAB* 25 MG PO SCH (08:39)
[2017-06-20] MEDS: Lactobacillus Acidophilu (GG)* 1 CAP CAP PO SCH (08:40)
[2017-06-20] MEDS: metFORMIN* 500 MG TAB PO SCH (08:40)
[2017-06-20] MEDS: Atenolol TAB* 25 MG PO SCH (08:40)
[2017-06-20] MEDS ORDERED: Atenolol TAB* 25 MG PO SCH (08:40)
[2017-06-20] MEDS: Allopurinol TAB* 300 MG PO SCH (08:40)
[2017-06-20] MEDS: Donepezil TAB* 5 MG PO SCH (08:40)
[2017-06-20] MEDS: Citalopram TAB* 20 MG PO SCH (08:40)
[2017-06-20] MEDS: Magnesium Oxide TAB* 400 MG PO SCH (08:40)
[2017-06-20] MEDS: Potassium Chlor TAB* 10 MEQ TAB.ER PO SCH (08:40)
[2017-06-20] MEDS: CMCS:Dabigatran CAP(NF) 150 MG CAP PO SCH (08:40)
[2017-06-20] MEDS: Bumetanide TAB* 1 MG PO SCH (08:40)
[2017-06-20] MEDS: amLODIPine TAB* 5 MG PO SCH (08:40)
[2017-06-20] MEDS: Insulin GLARGINE(*) 1 UNITS UNIT SUBCUT SCH (08:41)
[2017-06-20] MEDS: Calcium Carbonate CHEW TAB* 500 MG (TUMS) PO SCH (08:41)
[2017-06-20 11:43] VITALS: BP 118/51
--- NOTE | 2017-06-20 13:23 | ECHO ---
Patient: ORIANA HYMAN [facility] Rec#: [id number] : 1945 Date: 06/20/2017 Age: 71y Height: 175.3 cm / 69.0 in Weight: 101.6 kg / 223.9 lbs Sex: M BSA: 2.2 Room#: 433 Admit Date#: 06/18/2017 Type: Inpatient Referring: Jeane Jones MD Reading: Sb Deleon MD Mother Superior: Amaris Sanchez RN RDCS CC: Sera Tao MD Transthoracic Echocardiogram Indication: Syncope, bradycardia BP: 126/52 HR: 55 Rhythm: Bradycardia Findings History: Paroxysmal A. fib, CVAs, DM, HTN, HLD, FLORIN, PVD, memory problems, former smoker, former ETOH use, CKD. Technical Comments: The study quality is fair. The study is technically limited due to patient body habitus. The study is technically limited due to the patient's smoking history. Completed at 1250. Left Ventricle: The left ventricular chamber size is normal. There is increased basal septal hypertrophy noted without evidence of an increased gradient across the left ventricular outflow tract. Global left ventricular wall motion and contractility are within normal limits. There is normal left ventricular systolic function. The estimated ejection fraction is 55-60%. The assessment of diastolic function is non-diagnostic. Left Atrium: The left atrium is mild to moderately dilated. Right Ventricle: The right ventricular chamber size and systolic function are within normal limits. Right Atrium: The right atrium is mild to moderately dilated. Aortic Valve: The aortic valve is trileaflet. The aortic valve leaflets are mildly thickened. There is trace to mild aortic regurgitation. There is no evidence of aortic stenosis. Mitral Valve: Mild mitral annular calcification present. The mitral valve leaflets are mildly thickened. There is trace to mild mitral regurgitation. Tricuspid Valve: The tricuspid valve leaflets are normal. There is trace to mild tricuspid regurgitation. No pulmonary hypertension is noted. Pulmonic Valve: The pulmonic valve structure is not well visualized. There is a trace pulmonic regurgitation. There is no pulmonic stenosis. Pericardium: There is no significant pericardial effusion. A pericardial fat pad is visualized. Aorta: There is no dilatation of the ascending aorta. The aortic arch is not well visualized. There is no dilation of the aortic root. Pulmonary Artery: The main pulmonary artery is not well visualized. Venous: The inferior vena cava appears normal in size. There is a greater than 50% respiratory change in the inferior vena cava dimension. Conclusions There is normal left ventricular systolic function. The estimated ejection fraction is 55-60%. Global left ventricular wall motion and contractility are within normal limits. The left ventricular chamber size is normal. The left atrium is mild to moderately dilated. The right atrium is mild to moderately dilated. Functionally benign heart valves. Since the prior transesophageal echocardiogram completed 09/13/13, there appears to be little change. Measurements Name Value Normal Range RVDdMajor (2D) 3.9 cm (2.2 - 4.4) RAd ISD 4CH 5.2 cm (3.4 - 4.9) RA (A4C)W 4.9 cm (2.9 - 4.6) IVSd (2D) 1 cm (0.6 - 1) LVPWd (2D) 1 cm (0.6 - 1) LVIDd (2D) 4.4 cm (3.6 - 5.4) LVIDs (2D) 2.7 cm - LV FS (2D) 39 % (25 - 45) Aortic Annulus 2.2 cm (1.4 - 2.6) Ao root diameter (2D) 2.8 cm (2.1 - 3.5) Ascending Ao 2.8 cm (2.1 - 3.4) LA dimension (AP) 2D 3.9 cm (2.3 - 3.8) LAd ISD 4CH 5.8 cm (2.9 - 5.3) LA ISD 4CH W 4.3 cm (2.5 - 4.5) Name Value Normal Range LA ESV SP 4CH (A/L) 62 ml - LA ESV SP 2CH (A/L) 65 ml - LA ESV BP (A/L) 65 ml - LA ESV BP (A/L) index 30 ml/m2 - LA ESV SP 4CH (MOD) 58 ml - LA ESV SP 2CH (MOD) 61 ml - Name Value Normal Range MV E-wave Vmax 0.64 m/sec - MV deceleration time 257 msec - MV A-wave Vmax 0.8 m/sec - MV E:A ratio 0.8 ratio - LV septal e' Vmax 0.08 m/sec - LV lateral e' Vmax 0.09 m/sec - LV E:e' septal ratio 8 ratio - LV E:e' lateral ratio 7.1 ratio - Name Value Normal Range AV Vmax 1.6 m/sec - AV VTI 44 cm - AV peak gradient 10.5 mmHg - AV mean gradient 6.7 mmHg - LVOT Vmax 0.97 m/sec - LVOT VTI 25.7 cm - LVOT peak gradient 3.8 mmHg - LVOT mean gradient 2.3 mmHg - Name Value Normal Range TR Vmax 2.2 m/sec - TR peak gradient 19 mmHg - RAP 3 mmHg - RVSP 22 mmHg - IVC diameter 1.9 cm - Name Value Normal Range PV Vmax 0.86 m/sec -
--- NOTE | 2017-06-21 03:51 | DS ---
CC: Dr. Tao; Dr. Deleon; Dr. Brown, Neurology; Dr. Keenan * DISCHARGE SUMMARY: DATE OF ADMISSION: 06/18/17 DATE OF DISCHARGE: 06/20/17 PRIMARY CARE PROVIDER: Dr. Sera Tao. DISCHARGE DIAGNOSIS: Syncope likely vasovagal with dehydration as well as history of patient not eating for over 8 hours as precipitating factors. SECONDARY DIAGNOSES: 1. History of paroxysmal atrial fibrillation, currently in sinus rhythm and bradycardia. 2. Chronic kidney disease, stage 3 likely due to diabetes. 3. History of hypertension. 4. History of cardioembolic stroke from atrial fibrillation with residual left - sided hemianopia. 5. Gout. 6. Hyperlipidemia. 7. Cognitive impairment. 8. Depression. 9. History of peripheral vascular disease, status post fem-pop bypass in 2013. MEDICATIONS AT DISCHARGE: Apart from addition of magnesium at 400 mg daily for the next 7 days are unchanged and include: 1. Allopurinol 300 mg daily. 2. Norvasc 5 mg daily. 3. Atenolol 25 mg daily. 4. Lipitor 20 mg daily. 5. Bumex 1 mg daily. 6. Calcium carbonate 1000 mg b.i.d. 7. Pradaxa 150 mg b.i.d. 8. Aricept 5 mg daily. 9. Lexapro 10 mg daily. 10. Lantus insulin 36 units daily. 11. Metformin 1000 mg q.p.m. and 500 mg q.a.m. 12. Potassium chloride 10 mEq daily. 13. Valsartan hydrochlorothiazide 320/12.5 one tablet daily. CONSULTATIONS DURING THE HOSPITAL STAY: Included Dr. Brown from Neurology and Dr. Deleon from Cardiology. LABORATORY DATA AND STUDIES PERFORMED DURING HOSPITAL STAY: Sodium of 139, potassium 3.5, chloride 104, carbonate 28, BUN 32, creatinine 1.39, magnesium of 1.9. On 06/20/17, white blood cell count of 8.2, hemoglobin of 11.8, hematocrit of 35, and platelets of 184. Urinalysis at admission was unremarkable. Transthoracic echocardiogram obtained on 06/19/17, impression: "There is normal left ventricular systolic function. Left ventricular ejection fraction is 55% to 60%. Global left ventricular wall motion and contractility within normal limits. The left ventricular chamber size is normal. The right atrium is mild to moderately dilated. Functionally benign heart valves. ____ in 2013 , there appears to be little change." HOSPITALIZATION COURSE: Mr. Mondragon is a 71-year-old male with history of obstructive sleep apnea for which he is using CPAP, diabetes, hypertension, peripheral vascular disease, and cardioembolic stroke while in atrial fibrillation, who presented to the hospital after an episode of syncope. The patient stated that he last ate at 11:30 a.m. At around 7:30 p.m., he was [place] a [place] waiting for his libertarian to arrive to start dinner. He was sitting at dinner table, has not eaten and drunk yet and felt hot and diaphoretic, flashed and dizzy. Subsequently, he was noted to be unresponsive in the chair by his . When the staff was alerted, he was lowered to the floor and had an episode of convulsion. He came about within seconds to minutes without any significant deficit. Transiently, there was noted to be right-sided facial droop that still continues to be slightly present by the time of his presentation in the emergency department. In the emergency department, he was noted to have a magnesium level of 1.5. His creatinine was close to his baseline at admission at 1.62 and the patient has his creatinine ranging between 1.5 to 1.9 in the past. He was not orthostatic and he was bradycardic. He was in normal sinus rhythm. Due to flattening of the right nasal labial fold and patient's history of stroke, I asked Dr. Brown to see the patient in consultation. Dr. Brown saw that likely the right-sided facial droop was present before the event and it is a chronic problem. No further recommendations at that point were noted. Dr. Deleon saw the patient for evaluation. The patient has a history of paroxysmal atrial fibrillation and his rhythm is controlled with atenolol. Unfortunately, his heart rate had been in the 50s during his hospital stay and there was a question of a need of different medication for his rhythm control. At this point, the patient was noted to have an adequate response with ambulation with his heart rate increasing. He was observed for approximately 10 hours after his metoprolol dose was administered with his heart rate to continue to be in the 50s. He was otherwise asymptomatic from cardiac standpoint and he had no evidence of arrhythmias apart from occasional PVC and his transthoracic echocardiogram was unremarkable and similar to prior. At this point, Dr. Deleon recommended continuation of his atenolol and to follow up with Dr. Deleon as outpatient for further cardiac monitoring as well as likely stress test. The patient also noted that every day he wakes up feeling very tired and feeling like he "is going to ." At this point, we talked about multiple possibilities including and not limited the possibility of middle of the night hypoglycemia as well as his CPAP not working correctly. The patient stated that his obstructive sleep apnea was so bad that he was placed on CPAP without further titration or sleep afterwards. At this point, I recommended for the patient to see his sleep specialist again for likely sleep study with CPAP to see if it is working correctly. Please also note that the patient's creatinine improved from 1.6 to 1.39 by the time of discharge after gentle intravenous hydration. At this point, his metformin is not contraindicated by the time of discharge, but with his creatinine at 1.8 dropped to 1.6, should be used with caution due to increasing possibility of hypoglycemia and lactic acidosis. At discharge, the patient is recommended to: 1. Follow up with Dr. Tao in approximately 1 to 2 weeks. 2. He is recommended to follow up with Dr. Deleon and Dr. Deleon's office is going to call him for an appointment in approximately 1 month. PHYSICAL EXAMINATION AT THE TIME OF DISCHARGE: Blood pressure of 118/51, heart rate of 54 and regular, respiratory rate 20, oxygen saturation 97% on room air, temperature 97.8. General: The patient is a very pleasant 71-year-old male, who is in no acute distress. Alert, awake, and oriented x3. HEENT: Head, atraumatic, normocephalic. Eyes: Pupils equal and reactive to light and accommodation. Oropharynx clear. Mucosa moist. Neck: Supple. No JVD. No bruit bilaterally. Cardiovascular: Regular rate and rhythm. No murmur. Respiratory: Clear to auscultation bilaterally. Abdomen: Soft, nontender. Bowel sounds present in all 4 quadrants. Extremities: There is trace bilateral pedal edema. Pulses are +2 bilaterally. There is no clubbing or cyanosis. On neuro evaluation, speech clear. Cranial nerves II through XII grossly intact. Motor strength is 5/5 bilaterally. Please note that this is a short summary of the patient's hospitalization. Please refer to further medical records for details. TIME SPENT: Approximately 45 minutes were spent on the patient's discharge. [id number]/[facility] #: [id number] OTIS
== END 2017-06-20 14:45 | disposition home or self-care (01) ==
LOC: ED 19:48 → MEDTELE 22:08
PROVIDERS: ADMIT Internal Medicine; ATTEND Internal Medicine
DX: R55 Syncope and collapse (principal); E86.0 Dehydration; R00.1 Bradycardia, unspecified; N18.3 Chronic kidney disease, stage 3 (moderate); I10 Essential (primary) hypertension; I69.30 Unspecified sequelae of cerebral infarction; M10.9 Gout, unspecified; E78.5 Hyperlipidemia, unspecified; G31.84 Mild cognitive impairment of uncertain or unknown etiology; F32.9 Major depressive disorder, single episode, unspecified; Z86.79 Personal history of other diseases of the circulatory system
CPT/HCPCS: 36415; 70450; 71045; 80048; 80053; 81003; 83605; 83735; 84443; 84484; 85025; 85610; 85730; 93005; 93306; 99284; A9270-GY; G0378; J3475

== ENCOUNTER → 2017-12-08 07:24 | Day surgery (SDC) | payer MEDICARE ==
--- NOTE | 2017-12-02 22:23 | HP ---
CC: Dr. Tao; Dr. Ho * ADMITTING HISTORY AND PHYSICAL: DATE OF ADMISSION: 12/08/17. ADMITTING DIAGNOSIS: Bladder tumors. PLANNED PROCEDURE: Transurethral resection of multiple bladder tumors and right stent insertion, right retrograde pyelogram. SURGEON: Dr. Dash Wei. HISTORY OF PRESENT ILLNESS: Heather Mondragon is a 72-year-old former smoker who had undergone cystoscopy and was noted to have multiple bladder tumors. 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 He is being brought in for transurethral resection of bladder tumors and temporary guide stent insertions and right retrograde. PAST MEDICAL HISTORY: Significant for, 1. Mild cognitive impairment. 2. Type 2 diabetes mellitus. 3. Atrial fibrillation. 4. Depression. 5. History of strokes. MEDICATIONS ON ADMISSION: 1. Atorvastatin 20 mg daily. 2. Allopurinol 300 mg daily. 3. Atenolol 25 mg daily. 4. Pradaxa which is currently on hold. 5. Bumex 1 mg daily. 6. K-Shilpa 10 mEq one tablet daily. 7. Lantus 36 units subcutaneously daily. 8. Metformin 500 mg twice a day. 9. Escitalopram 20 mg daily. 10. Losartan/hydrochlorothiazide 100/12.5 one tablet daily. 11. Glucophage XR 3 tablets a day. 12. Aricept 5 mg daily. ALLERGIES AND INTOLERANCES: No known drug allergies. PHYSICAL EXAMINATION GENERAL: Reveals a pleasant elderly gentleman. VITAL SIGNS: Blood pressure is 150/90, pulse 52 per minute, oxygen saturation 98% on room air. CARDIOVASCULAR EXAM: S1, S2. No murmurs, lungs are clear bilaterally. ABDOMEN: Soft without masses. IMPRESSION: A 72-year-old former smoker with multiple medical issues and cystoscopy findings of multiple bladder tumors on the right side of the bladder. Planned procedure is transurethral resection of bladder tumors, right retrograde and right stent insertion. [id number]/[facility] #: [id number] MTDD
[~2017-12-08 07:24] MED LIST: Acetaminophen IV 1GM/100ML * 1,000 MG/100 ML VIAL IVPB ONE; Acetaminophen IV 1GM/100ML * 100 ML ONE; Acetaminophen TAB* 325 MG PO PRN; Buffered Lidocaine 0.9% SYRIN* 5 ML/SYR SYRINGE INTRADERM ONE; EPHEDrine (Pressors)* 50 MG/ML VIAL ONE; Furosemide IV* 10 MG/ML 2 ML VIAL (20 MG) ONE; Iohexol 180 (CONTRAST) 10 ML SDV IV ONE; Lidocaine 2% PF * 5 ML VIAL ONE; Naloxone* 0.4 MG/ML 1 ML VIAL IV PRN; Ondansetron INJ* 2 MG/ML VIAL IV PRN; cefTRIAXone(*) 2 GM ADDV.VIAL IVPB ONE; fentaNYL* 50 MCG/ML 2 ML VIAL (100 MCG VIAL) IV PRN; mitoMYcin PWD* 40 MG in Sterile Water for Inj* 40 ML IRRIGATION ONE; oxyCODONE/Acetamin 5/325 MG* TAB PO PRN
--- NOTE | 2017-12-08 10:41 | RAD ---
INDICATION: Right stent placement COMPARISONS: CT dated September 09, 2015 TECHNIQUE: Fluoroscopy was provided for a retrograde pyelogram and stent placement. Total fluoroscopy time is: 5 seconds FINDINGS: Spot images demonstrate contrast within the right renal collecting system. A ureteral stent is noted. IMPRESSION: FLUOROSCOPY WAS PROVIDED FOR A RETROGRADE PYELOGRAM AND STENT PLACEMENT CPT II Codes: G9500
[2017-12-08 13:22] VITALS: BP 164/68
--- NOTE | 2017-12-09 03:56 | OP ---
CC: Dr. Sera Tao * DATE OF OPERATION: 12/08/17 - [facility] DATE OF : 43 SURGEON: Dash Wei MD ANESTHESIOLOGIST: Dr. Orozco. ANESTHESIA: Spinal. PRE-OP DIAGNOSES: 1. Hematuria. 2. Bladder tumors. POST-OP DIAGNOSES: 1. Hematuria. 2. Bladder tumors. OPERATIVE PROCEDURES: 1. Cystoscopy, transurethral resection and fulguration of multiple bladder tumors (5 to 6 cm aggregate). 2. Right retrograde and right stent insertion. OPERATIVE FINDINGS: 1. Moderately enlarged prostate. 2. Multiple bladder tumors, right lateral wall close to right side of trigone. COMPLICATIONS: None. BLOOD LOSS: Less than 50 cc. STENT USED: 6-Icelandic stent, right ureter. POSTOPERATIVE CONDITION: Stable. INDICATIONS: Heather Mondragon is a 72-year-old gentleman who was evaluated and noted to have the above-described bladder tumors. Because of the proximity of some of the tumors to the intramural course of the right ureter. The plan is for right stent insertion and transurethral resection of the bladder tumors. DESCRIPTION OF PROCEDURE: After induction of spinal anesthesia, the patient was placed in dorsal lithotomy position. Sequential compression devices were in place and functioning. Initial cystoscopy revealed a normal-appearing urethra and moderately enlarged prostate. The bladder was entered and examined and the above- mentioned findings were noted. Attention was directed to the right orifice. Retrograde pyelogram revealed no evidence of filling defects or obstruction and a 6-Icelandic stent was introduced and positioned under fluoroscopy with good proximal and distal positioning obtained. Next, attention was directed to the bladder tumors represented. Biopsies were obtained and sent for histopathology. Next, using a resectoscope, all of the visible tumors were resected and/or fulgurated. At the end of the procedure, there was no remaining visible tumor and hemostasis appeared satisfactory. There was no evidence of bladder perforation. A 20-Icelandic Bell catheter was placed for temporary bladder drainage. The patient tolerated the procedure satisfactorily and was transferred back to the recovery area in stable condition. [id number]/[facility] #: [id number] [facility]
== END | disposition home or self-care (01) ==
LOC: OR 07:24
PROVIDERS: ATTEND Urology
DX: C67.2 Malignant neoplasm of lateral wall of bladder (principal); R31.9 Hematuria, unspecified; Z87.891 Personal history of nicotine dependence; N40.0 Benign prostatic hyperplasia without lower urinary tract symptoms; E11.9 Type 2 diabetes mellitus without complications; Z79.4 Long term (current) use of insulin; Z79.84 Long term (current) use of oral hypoglycemic drugs; I48.91 Unspecified atrial fibrillation; Z79.01 Long term (current) use of anticoagulants; I69.319 Unspecified symptoms and signs involving cognitive functions following cerebral infarction; I73.9 Peripheral vascular disease, unspecified
CPT/HCPCS: 74420; 88305; C1876; J0696; J1940; J9280

== ENCOUNTER 2018-10-26 13:09 | Observation (INO) | payer BC, MEDICARE ==
--- NOTE | 2018-10-26 14:35 | ED ---
Neurological HPI - HPI Summary HPI Summary: A 73 y/o male with a history of atrial fibrillation, CVA 3 with expressive aphasia and right sided weakness, accompanied by his presents to [facility] with a chief complaint of right lower extremity weakness since yesterday. The patient normally has right leg weakness but this time he could not even lift his right leg which states is abnormal for him. They were in [place] yesterday so she did not come to ED and states the symptoms have improved and he was able to stand today. He did fall onto his R knee but was able to ambulate afterwards. Did not hit head. Now when standing he is leaning a little bit to the right and his right foot is pointed a little outwards, per . The patient has a Hx of 3 CVA's. Deficits are dementia, some right leg weakness, and aphasia. He has a Hx of DM, vascular disease, atrial fibrillation. He is on Pradaxa. Last CVA was around 2017. He is confused at baseline intermittently. He denies any current pain. - History of Current Complaint Chief Complaint: EDNeurologicalDeficit Stated Complaint: PT COULDNT WALK YESTERDAY/ WANTS EVALUATION PERP Time Seen by Provider: 10/26/18 13:59 Hx Obtained From: Patient Onset/Duration: Sudden Onset, Started hours ago, Still Present Timing: Constant Onset Severity: Mild Current Severity: Mild Headache Location: Diffuse (Right) Pain Intensity: 0 Pain Scale Used: 0-10 Numeric Character: Weak Aggravating: Nothing Alleviating: Nothing Associated Signs and Symptoms: Negative: Pain, Fever, Chest Pain - Additional Pertinent History Primary Care Physician: VIJAY - Allergy/Home Medications Allergies/Adverse Reactions: Allergies Allergy/AdvReac Type Severity Reaction Status Date / Time indomethacin Allergy Unknown Verified 12/08/17 07:47 Reaction Details Sulfa (Sulfonamide Allergy Rash And Verified 12/08/17 07:47 Antibiotics) Itching Home Medications: Home Medications Atenolol TAB* [Tenormin TAB* 25 MG] 25 mg PO QAM 10/26/18 [History Confirmed ] Bifidobacterium Infantis [Align] 4 mg PO DAILY 10/26/18 [History Confirmed 10/26] Cholecalciferol (Vitamin D3) [Vitamin D3] 5,000 unit PO BEDTIME 10/26/18 [ History Confirmed 10/26/18] L.acidoph,Paracasei, B.lactis [Probiotic] 1 cap PO DAILY 10/26/18 [History Confirmed 10/26/18] Losartan/Hydrochlorothiazide [Losartan Potassium/Hydroc 100-12.5 mg] 1 tab PO QAM 10/26/18 [History Confirmed 10/26/18] Metformin HCl 500 mg PO BID 10/26/18 [History Confirmed 10/26/18] QUEtiapine TAB* [Seroquel 25 MG TAB*] 25 mg PO DAILY 10/26/18 [History Confirmed 10/26/18] QUEtiapine TAB* [Seroquel 25 MG TAB*] 50 mg PO BEDTIME 10/26/18 [History Confirmed 10/26/18] Solifenacin(NF) [Vesicare(NF)] 10 mg PO BEDTIME 10/26/18 [History Confirmed ] PMH/Surg Hx/FS Hx/Imm Hx Endocrine/Hematology History: Reports: Hx Anticoagulant Therapy - Pradaxa, Hx Diabetes Denies: Hx Thyroid Disease Cardiovascular History: Reports: Hx Coronary Artery Disease, Hx Hypercholesterolemia - HLD, Hx Hypertension - PT. STATES CONTROLLED WITH MEDS, Hx Peripheral Vascular Disease - FEM BYPASS RIGHT LEG Denies: Hx Congestive Heart Failure, Hx Deep Vein Thrombosis, Hx Myocardial Infarction, Hx Pacemaker/ICD, Other Cardiovascular Problems/Disorders Respiratory History: Reports: Hx Sleep Apnea - DX 2014, Other Respiratory Problems/Disorders - FORMER SMOKER Denies: Hx Asthma, Hx Chronic Obstructive Pulmonary Disease (COPD), Hx Lung Cancer, Hx Pneumonia, Hx Pulmonary Embolism GI History: Reports: Hx Irritable Bowel - DIARRHEA Denies: Hx Gall Bladder Disease, Hx Gastrointestinal Bleed, Hx Ulcer, Hx Urosepsis History: Reports: Hx Renal Disease - RT STENT, Other Problems/Disorders - bladder tumors Denies: Hx Kidney Stones Musculoskeletal History: Reports: Hx Arthritis - OSTEOARTHRITIS in hands, Hx Osteoporosis, Other Musculoskeletal History - HX OF GOUT Comment Only: Hx Rheumatoid Arthritis - R/O Sensory History: Reports: Hx Cataracts - al Denies: Hx Contacts or Glasses, Hx Hearing Aid Opthamlomology History: Reports: Hx Cataracts - al Denies: Hx Contacts or Glasses Neurological History: Reports: Other Neuro Impairments/Disorders - frontal lobe , poor memory, cognitive Denies: Hx Dementia, Hx Migraine, Hx Seizures, Hx Transient Ischemic Attacks (TIA) Psychiatric History: Reports: Hx Anxiety - on meds, Hx Depression - on meds Denies: Hx Panic Disorder, Hx Schizophrenia, Hx Bipolar Disorder - Surgical History Surgery Procedure, Year, and Place: POPLITEAL BYPASS RLE WITH VEIN HARVENT FROM LEFT ARM @ [facility] [employer] [facility] ON 04/14/2013. RIGHT KNEE SCOPING [facility] [place] 2004. ANGIOGRAM WITH STAR CLOSURE-08/21/2013 and 07/23/14-INFO ENCLOSED Hx Anesthesia Reactions: Yes - hallucinations, delerium Infectious Disease History: No Infectious Disease History: Reports: Hx Shingles - hx of x2 Denies: Hx Clostridium Difficile, Hx Hepatitis, Hx Human Immunodeficiency Virus (HIV), Hx of Known/Suspected MRSA, Hx Tuberculosis, Hx Known/Suspected VRE , Hx Known/Suspected VRSA, History Other Infectious Disease, Traveled Outside the in Last 30 Days - Family History Known Family History: Positive: Cardiac Disease, Hypertension - Social History Alcohol Use: None Hx Substance Use: No Substance Use Type: Reports: None Hx Tobacco Use: Yes Smoking Status (MU): Former Smoker Type: Cigarettes Amount Used/How Often: 1 PPD for 40 yrs Length of Time of Smoking/Using Tobacco: 40 YRS Have You Smoked in the Last Year: No Review of Systems Negative: Fever Positive: Weakness - right sided All Other Systems Reviewed And Are Negative: Yes Physical Exam - Summary Physical Exam Summary: Constitutional: Elderly male, NAD Skin: Warm, Dry, abrasion R knee HENT: Normocephalic; Atraumatic Eyes: Conjunctiva normal Neck: Musculoskeletal ROM normal neck. (-) JVD, (-) Nuchal rigidity Cardio: Rhythm regular, rate normal, Heart sounds normal; Intact distal pulses; Radial pulses are 2+ and symmetric. (-) Murmur Pulmonary/Chest wall: Effort normal. (-) Respiratory distress, (-) Wheezes, (-) Rales Abd: Soft. (-) Tenderness, (-) Distension, (-) Guarding, (-) Rebound Musculoskeletal: (-) Edema, no TTP R knee, full ROM. Lymph: (-) Cervical adenopathy Neuro: Alert, PERRL, Oriented to person, Cranial nerves II-XII are grossly intact aside from expressive and receptive aphasia. SILT, Strength 5/5 BUE and BLE, (-) Dysmetria, (-) Nystagmus, gait slow. RUE and RLE drift. Romberg deferred as patient unsteady Psych: Happy, interactive w Triage Information Reviewed: Yes Vital Signs On Initial Exam: Initial Vitals Temp Pulse Resp BP Pulse Ox 97.8 F 65 14 109/48 97 10/26/18 13:12 10/26/18 13:12 10/26/18 13:12 10/26/18 13:12 10/26/18 13:12 Vital Signs Reviewed: Yes - [place] Coma Scale Best Eye Response: 4 - Spontaneous Best Motor Response: 6 - Obeys Commands Best Verbal Response: 5 - Oriented Coma Scale Total: 15 Diagnostics - Vital Signs Vital Signs Temp Pulse Resp BP Pulse Ox 10/26/18 14:00 15 10/26/18 13:51 56 13 140/56 97 10/26/18 13:50 57 7 96 10/26/18 13:12 97.8 F 65 14 109/48 97 - Laboratory Result Diagrams: 10/27/18 05:05 10/27/18 05:05 Lab Statement: Any lab studies that have been ordered have been reviewed, and results considered in the medical decision making process. - CT Brain CT Interpretation Completed By: Radiologist Summary of CT Findings: 1. No acute intracranial abnormality by CT (MRI is more sensitive for acute infarct). 2. Old right-sided infarcts as above. ED physician has reviewed this imaging report. Brain MRI CT Interpretation Completed By: Radiologist Summary of CT Findings: No evidence for acute or subacute ischemic infarct or other acute intracranial process. Old RIGHT middle cerebral artery infarct at the RIGHT frontal lobe, smaller regions of. encephalomalacia at the RIGHT parietal and occipital lobes, and stigmata of chronic small. vessel ischemic disease and involutional change. ED physician has reviewed this imaging report. - EKG 13:25 Cardiac Rate: NL - 62 bpm EKG Rhythm: Sinus Rhythm Summary of EKG Findings: EKG at 13:25 reveals normal sinus rhythm at 63 bpm, PVCs, no new ischemic changes. Course/Dx - Course Course Of Treatment: 73 y/o male with a history of atrial fibrillation, CVA 3 with resultant right-sided weakness and a expressive and receptive aphasia presents with worsening of right lower extremity weakness. Physical exam with an elderly male no acute distress. Has some drift in the right upper and right lower extremities, and suspect this could be secondary to recrudescence however will get a CT head and labs consult neurology and likely for TIA workup. - Diagnoses Provider Diagnoses: Right leg weakness - Physician Notifications Discussed Care Of Patient With: Warren Jj Time Discussed With Above Provider: 14:41 Instructed by Provider To: MD Will See In ED Discharge - Sign-Out/Discharge Documenting (check all that apply): Patient Departure - admit All imaging exams completed and their final reports reviewed: Yes Patient Received Moderate/Deep Sedation with Procedure: No - Discharge Plan Condition: Fair Disposition: ADMITTED TO [facility] - Billing Disposition and Condition Condition: FAIR Disposition: Admitted to [facility] - Attestation Statements Document Initiated by Cameliaibe: Yes Documenting Scribe: Oscar Coppola Provider For Whom Neeta is Documenting (Include Credential): Garrett Villagran MD Scribe Attestation: Oscar Yap, scribed for Garrett Villagran MD on 10/27/18 at 1023. Scribe Documentation Reviewed: Yes Provider Attestation: The documentation as recorded by the Oscar haas accurately reflects the service I personally performed and the decisions made by Garrett grimm MD Status of Scribe Document: Viewed Consult Consult: At 15:[address] Nelson, hospitalist, who accepted the patient for admission.
[2018-10-26 14:44] LABS: ABS Basophils 0.1 10^3/ul (0-0.2); ABS Eosinophils 0.2 10^3/ul (0-0.6); ABS Lymphocytes 2.4 10^3/ul (1.0-4.8); ABS Monocytes 0.8 10^3/ul (0-0.8); Eosinophil % 1.9 %; Hematocrit 35 % (42-52); Hemoglobin 11.6 g/dL (14.0-18.0); Lymphocyte % 25.5 %; Mean Corpuscular HGB Conc 34 g/dL (31-36); Mean Corpuscular Hemoglobin 32 pg (27-31); Mean Corpuscular Volume 95 fL (80-94); Mean Platelet Volume 8.4 fL (7.4-10.4); Platelet Count 202 10^3/uL (150-450); Red Blood Count 3.63 10^6 /uL (4.18-5.48); Red Cell Distribution Width 15 % (10-15); White Blood Count 9.4 10^3/uL (3.5-10.8)
[2018-10-26 14:55] LABS: Troponin I 0.01 ng/mL (<0.04)
[2018-10-26 14:57] LABS: Albumin 3.8 g/dL (3.2-5.2); Albumin/Globulin Ratio 1.4 (1-3); BUN/Creatinine Ratio 23.9 (8-20); EGFR African American 50.3 (>60); EGFR Non-African American 41.6 (>60); Globulin 2.7 g/dL (2-4); Potassium 3.9 mmol/L (3.5-5.0); Total Bilirubin 0.5 mg/dL (0.2-1.0); Total Protein 6.5 g/dL (6.4-8.9)
[2018-10-26] MEDS ORDERED: Ondansetron INJ* 2 MG/ML VIAL IV PRN (16:10)
[2018-10-26] MEDS ORDERED: Acetaminophen TAB* 325 MG PO PRN (16:10)
--- NOTE | 2018-10-26 16:53 | CONS ---
CC: Dr. Tao * CONSULTATION REPORT: DATE OF CONSULT: 10/26/18 PRIMARY CARE PROVIDER: Dr. Tao. ATTENDING PHYSICIAN WHILE IN THE HOSPITAL: Dr. Jerald Jj (report being dictated by Omar Guthrie NP) CHIEF COMPLAINT: Worsening right-sided weakness, listing to the right, trouble walking. HISTORY OF PRESENT ILLNESS: Mr. Mondragon is a 73-year-old male patient who carries a history of atrial fibrillation, he has had a history of CVA in the past, he has a history of dementia as well, history of hypertension, hyperlipidemia, he has a history of vascular disease, diabetes, who comes into our ER today. It has been noted by the that yesterday he was doing okay. He woke up this morning and she noted that he was having some weakness on his right side. It was much worse this morning. She did notice it a little bit yesterday. He was listing to the right. He was having trouble walking. The patient has a significant history of strokes with significant aphasia. He is really unable to give much history himself due to this and also due to the dementia. She was concerned that his stroke symptoms could be coming back and he may have a new stroke, so this is why she alerted her primary care provider and she was referred to the hospital. She notes that he fell last . To her knowledge, he did not strike his head. She notes that he has been taking his medications. She also notes that recently his Seroquel was increased by 25 mg at bedtime for a total of 75 mg a day. He takes 25 in the morning and 50 at night. She says that he has been more drowsy and just increasing weakness on his right side, worse than his baseline. Because of this concern, the patient was presented to the ER today. PAST MEDICAL HISTORY: Significant for: 1. Hypertension. 2. Cardioembolic strokes from AFib x3. 3. Gout. 4. Hyperlipidemia. 5. Dementia. 6. Type 2 diabetes. 7. Depression. 8. Anxiety. 9. Peripheral vascular disease. PAST SURGICAL HISTORY: He has had a right popliteal bypass in 2013. HOME MEDICATIONS: Include: 1. Atenolol 25 mg daily. 2. Atorvastatin 20 mg at bedtime. 3. Losartan/hydrochlorothiazide 1 tablet daily. 4. Allopurinol 300 mg daily. 5. Pradaxa 150 mg twice a day. 6. Potassium 10 mEq daily. 7. Bumex 1 capsule every other day. 8. Probiotic 1 capsule daily. 9. Lantus 32 units in the morning. 10. Metformin 1 tablet p.o. twice a day. 11. Vitamin D3 one tablet daily. 12. Lexapro 20 mg daily. 13. VESIcare 10 mg daily. 14. Seroquel 25 mg in the morning and 50 at bedtime. 15. Aricept 10 mg daily, which was recently just stopped. ALLERGIES TO MEDICATIONS: Include SULFA, INDOMETHACIN. FAMILY HISTORY: His father had kidney failure. Mother at the age of 74 from sepsis. SOCIAL HISTORY: He is a retired pharmacist. He is . He has 2 children. Healthcare proxy is his . He used to be a smoker, but he quit in 2012. He does not drink alcohol. REVIEW OF SYSTEMS: Unable to be obtained directly from the patient, although the states that she has not noticed having any recent fevers reported. No vomiting. No coughing. No shortness of breath. No trouble with urination was reported. Review of 14 systems was completed, all others negative. PHYSICAL EXAM: Vital Signs: Blood pressure 133/73, respirations 18, O2 sat 97% , temperature 97.8. General: At this time, Mr. Mondragon is a 73-year-old male patient. He appears to be well nourished and well developed. HEENT: Head: Atraumatic, normocephalic. Eyes: EOMs are intact. Sclerae anicteric and not pale. Throat: Oral mucosa appears to be moist. No oropharyngeal erythema. Neck was supple. Heart: Sounds S1, S2. Regular rate and rhythm. No murmurs, rubs, or gallops. Lungs: Clear to auscultation bilaterally. No wheezes, rales , or rhonchi. Abdomen was soft, flat, nontender. Bowel sounds were present. Extremities: Pulses were 2+ throughout. No edema. Neurologically, he is right - handed. He is alert to himself. He is interactive. He follows simple commands. Speech: He does have significant aphasia, both expressive and receptive. Cranial Nerves: Pupils reactive to light. It is difficult to assess his visual castro. No ptosis was noted. Sensation was intact. Face was symmetric with no significant weakness. Hearing grossly intact. Tongue was midline. Palate elevates symmetrically. He had 5/5 strength at the sternocleidomastoid muscles and trapezius muscles. Motor: He had increased tone in the right upper extremity. He had 5/5 strength distally and proximally to the upper extremities. [employer], 5/5 strength bilaterally. He had some drift noted in the right upper extremity and in the left lower extremity. 5/5 strength in the lower extremities was noted. He had no tremors noted. Gait was not tested at this point. He was brought in by wheelchair. Reflexes: He was hyperreflexic in the lower extremities bilaterally at the patella. He was 2 + at the biceps bilaterally and 2+ at the brachioradialis. DIAGNOSTIC STUDIES/LAB DATA: WBC 9.4, RBC of 3.63, hemoglobin of 11.6, hematocrit 35, platelet count of 202. Sodium was 138, potassium of 3.9, chloride of 105, bicarb 25, BUN 39, creatinine 1.63 which is near his baseline, his glucose was 199, calcium 9. Total bili 0.5, AST 15, ALT 9, alk phos 67. Troponin 0.01. Albumin 3.8. He had an EKG obtained today which showed normal sinus rhythm, rate of 63 with a PVC. No ST elevations or T-wave inversions were noted. ASSESSMENT AND PLAN: Mr. Mondragon is a 73-year-old male patient coming into the ED today with complaints of worsening right-sided weakness. He did have some drift on his exam on his right side than his left side today. On neuro exam, strength seemed to be pretty well preserved. Given the drift on exam today and the fact that there is concern for increasing weakness on his right side, this could be recrudescence of his stroke. It could be secondary to Seroquel, but I would recommend looking for underlying infections. I have ordered a UA, chest x -ray. I would repeat MRI of the brain and do CTA of the head and neck along with an echo. Place him on telemetry. Frequent neuro checks. Continue Pradaxa for now. I would not give him an aspirin just at this point. Given the fall, I would get a CT urgently to make sure he does not have any bleeding that could be causing the symptoms. Assuming the workup is negative, we could consider cutting back on the Seroquel and he could have followup with his primary neurologist, but going forward, I would like to make sure there are no acute events, so I have ordered MRI, CTA head and neck, and echo, and we will continue to follow him. OMAR GUTHRIE NP [id number]/[facility] #: [id number] [facility]
--- OUTSIDE RECORDS SUMMARY | 2018-10-26 18:02 | XMS REPORT | Continuity of Care Document ---
:1945 External Reference #:[id number] Author Name Danny José Care Team Providers Name Role Phone Sera Tao MD Primary Care Physician Unavailable Payers Date Identification Numbers Payment Provider Subscriber Policy Number: [id number] Medicare Blue Ppo Heather Mondragon Group Number: [id number] [address] [address] PayID: [id number] [place] [address] Problems Active Problems Provider Date Disturbance in sleep behavior Christy Keenan MD Onset: 10/18/2014 Obstructive sleep apnea syndrome Christy Keenan MD Onset: 12/24/2014 Obesity Christy Keenan MD Onset: 12/24/2014 Nasal congestion Stephanie Fan DNP, RN, DU[employer] WORKER-BC Onset: 03/03/2016 Epistaxis Stephanie Fan DNP, RN, [employer] WORKER[employer] Onset: 03/03/2016 Family History Date Family Member(s) Observation Comments General MGM DM/Parkinson's;PGF DM/leg amputation Father Hypertension Father at age 86 from kidney failure Mother at age 94 ; from sepsis Siblings 2 Siblings Oldest brother w/malignant melanoma at age 54;sister healthy Social History Type Date Description Comments Sex Unknown Marital Status 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 Tobacco Use Start: Unknown Quit November ETOH Use Denies alcohol use Tobacco Use Start: Unknown Patient is a former quit in 11/14/2012 End: Unknown smoker smoke for approx 50 yrs, 1.5 ppd Recreational Drug Use Denies Drug Use Smoking Status Reviewed: 10/18/18 Patient is a former quit in 11/14/2012 smoker smoke for approx 50 yrs, 1.5 ppd Exercise Type/Frequency Exercises sporadically Inhibited by gout flareups Allergies, Adverse Reactions, Alerts Active Allergies Reaction Severity Comments Date Indocin rash 06/04/2015 Sulfa Antibiotics rash many years ago 06/04/2015 Inactive Allergies NKDA 09/29/2013 Medications Active Medications SIG Qnty Indications Ordering Provider Date Donepezil HCL 1 every day G31.84 Unknown 5mg Tablets Freestyle Lite 3 times daily or Unknown Lancets as needed dx e11.65 Freestyle Lite Test use as directed Unknown Strip twice day or as needed Seroquel Take one tab by 60tabs Clifton Lovell, 25mg Tablets mouth twice a day Liam Turcios 1 by mouth every 30tabs Dash Wei, 10mg Tablets day to take for MD 30 days , f/u Dr. Wei mon 09/06/17 Escitalopram Oxalate 1 by mouth every Unknown day PM 20mg Tablets Vitamin D-3 1 by mouth every Unknown 5000Unit day Capsules Metformin HCL 1 tablet po bid Unknown 500mg Am/PM( med change Tablets decrease due to GI Problems 1-2 months ago) Lantus Solostar 32 units in the Unknown morning 100Unit/ML Solution Pen-Inject Align Probiotic 1 cap po daily Unknown Capsule Bumetanide 1 by mouth every Unknown 1mg Tablets other day (med change decrease 2 weeks ago) Klor-Con M10 1 by mouth every Unknown 10Meq day Am Tablets ER Pradaxa 1 cap by mouth Unknown 150mg Capsules twice a day Am/PM Allopurinol 1 tab po daily Am 90tabs Unknown 300mg Tablets Losartan 1 by mouth every Unknown Potassium/Hydrochloro day thiazide 100-12.5mg Tablets Atorvastatin Calcium take 1 tablet at 90tabs Unknown bedtime 20mg Tablets Atenolol 1 by mouth daily 90tabs Unknown 25mg Tablets Am History Medications Memantine HCL 1 by mouth in 67tabs Clifton ArtAriel 03/23/2018 - 10mg the PM with the Liam Lovell 06/07/2018 Tablets 5 MG tab for 1 wk, then 1 tab in the Am and 1 tab in the PM Memantine HCL 1 by mouth 28tabs Clifton ArtAriel 03/23/2018 - 5mg Tablets every Am for 1 Liam Lovell 06/07/2018 wk, then 1 twice a day for 1 wk, then 1 every Am & the 10 MG tab in PM for 1 week, then switch to 10 MG tabs only Memantine HCL starter kit use 49tabs Clifton ArtAriel 03/03/2018 - as directed Liam Lovell 03/23/2018 5(28)-10(21)mg Tablets Memantine HCL Clifton ArtAriel 03/02/2018 - Liam Lovell 03/02/2018 5(28)-10(21)mg Tablets Memantine HCL 1 po qam for 1 120tabs Clifton Orlando 02/26/2018 - 5mg Tablets wk then 1 bid Liam Lovell 03/02/2018 for 1 wk then 1 qam and 2 qhs for 1 wk then 2 bid. after 1 wk switch to 10 mg bid rx Donepezil HCL 1 by mouth 90tabs G31.84 Clifton Orlando 11/24/2017 - 10mg every day Liam Lovell 10/18/2018 Tablets Donepezil HCL 1 every day ( 90tabs G31.84 Clifton Orlando 01/18/2017 - 5mg Tablets taken in PM) Liam Lovell 11/24/2017 Ergocalciferol take 1 capsule 14caps E55.9 Luke Ramsey, 06/19/2015 - 08441Fdtg by mouth once M.Tatianna 01/17/2017 Capsules weekly Escitalopram Oxalate 1 by mouth hs ( 30tabs Stephanie Fan, 04/30/2015 - 5mg pt states he CARMEN, RN, [employer] WORKER-BC 07/21/2017 Tablets takes 1 at hs 08/19/15) Lexapro 1 by mouth Unknown 04/29/2015 - 5mg Tablets every day 06/04/2015 Lactaid as needed Unknown 10/17/2014 - 04/29/2015 Tylenol as needed Unknown 10/17/2014 - 500mg Tablets 06/04/2015 Amlodipine Besylate 1 by mouth Unknown - 5mg every day 07/14/2017 Tablets Colchicine 1 by mouth 30tabs Unknown - 0.6mg Tablets every day prn 06/04/2015 Warfarin Sodium take po as 90tabs Unknown - 5mg directed 04/29/2015 Tablets Hydrocodone-Acetaminop 1 by mouth 20tabs Unknown - hen every 4-6 hours 02/17/2016 5-325mg Tablets prn. D-3-5 Unknown - 5000Unit Capsules 07/14/2017 Medications Administered in Office Medication SIG Qnty Indications Ordering Provider Date Inj, Regadenoson, 0.1 MG Bridger Ho M.D. 07/23/2017 Injection Technetium TC 99M TetrofaustininBridger M.D. 07/23/2017 Per Unit Dose Up To 40 Millicuries Injection Inj, Regadenoson, 0.1 MG Corinne Sibley M.D. 03/27/2013 Injection Technetium TC 99M TetrofosminCorinne M.D. 03/27/2013 Per Unit Dose Up To 40 Millicuries Injection Immunizations CPT Code Status Date Vaccine Lot # [id number] Given 10/18/2014 Fluvirin Im 3Yrs And Older Vital Signs Date Vital Result Comment 10/18/2018 11:42am Height 67 inches 5'7" Weight 205.00 lb Heart Rate 62 /min BP Systolic 132 mmHg BP Diastolic 62 mmHg BMI (Body Mass Index) 32.1 kg/m2 06/08/2018 11:12am Height 67 inches 5'7" Weight 218.00 lb Heart Rate 56 /min BP Systolic 122 mmHg BP Diastolic 58 mmHg BMI (Body Mass Index) 34.1 kg/m2 02/07/2018 11:00am Height 67 inches 5'7" Weight 215.00 lb Heart Rate 64 /min BP Systolic Sitting 130 mmHg BP Diastolic Sitting 64 mmHg Respiratory Rate 16 /min BMI (Body Mass Index) 33.7 kg/m2 11/24/2017 11:26am Height 67 inches 5'7" Weight 226.00 lb Heart Rate 58 /min BP Systolic 112 mmHg BP Diastolic 48 mmHg Respiratory Rate 16 /min BMI (Body Mass Index) 35.4 kg/m2 09/01/2017 11:05am Height 67 inches 5'7" Weight 226.00 lb without shoes Heart Rate 56 /min BP Systolic Sitting 102 mmHg Rue lg cuff BP Diastolic Sitting 50 mmHg Rue lg cuff BP Systolic Standing 94 mmHg Rue lg cuff BP Diastolic Standing 46 mmHg Rue lg cuff O2 % BldC Oximetry 98 % at room air BMI (Body Mass Index) 35.4 kg/m2 Ejection Fraction 55-60% date 06/20/17 ECHO 05/19/2017 11:31am Height 69 inches 5'9" Weight 219.00 lb Heart Rate 52 /min BP Systolic Sitting 118 mmHg Rue large cuff BP Diastolic Sitting 54 mmHg Rue large cuff Respiratory Rate 20 /min O2 % BldC Oximetry 96 % On Ra BMI (Body Mass Index) 32.3 kg/m2 03/22/2017 8:50am Height 69 inches 5'9" Weight 233.38 lb Heart Rate 80 /min BP Systolic Standing 128 mmHg BP Diastolic Standing 80 mmHg BMI (Body Mass Index) 34.5 kg/m2 01/18/2017 8:46am Height 69 inches 5'9" Weight 208.00 lb Heart Rate 57 /min BP Systolic Sitting 114 mmHg BP Diastolic Sitting 60 mmHg Respiratory Rate 16 /min BMI (Body Mass Index) 30.7 kg/m2 12/07/2016 11:02am Height 69 inches 5'9" Weight 218.38 lb Heart Rate 60 /min BP Systolic 106 mmHg BP Diastolic 58 mmHg BMI (Body Mass Index) 32.2 kg/m2 05/19/2016 9:57am Height 69 inches 5'9" Weight 210.00 lb per patient Heart Rate 64 /min BP Systolic Sitting 118 mmHg BP Diastolic Sitting 62 mmHg Respiratory Rate 18 /min O2 % BldC Oximetry 97 % BMI (Body Mass Index) 31.0 kg/m2 03/03/2016 10:20am Height 69 inches 5'9" Weight 206.00 lb Heart Rate 54 /min BP Systolic 110 mmHg BP Diastolic 58 mmHg Respiratory Rate 14 /min O2 % BldC Oximetry 97 % BMI (Body Mass Index) 30.4 kg/m2 02/17/2016 10:45am Height 69 inches 5'9" Weight 206.00 lb Heart Rate 60 /min BP Systolic Sitting 104 mmHg BP Diastolic Sitting 60 mmHg Respiratory Rate 14 /min Body Temperature 95.9 F Pain Level 0 BMI (Body Mass Index) 30.4 kg/m2 09/03/2015 11:35am Weight 224.00 lb fully dressed with shoes 09/03/2015 10:54am Height 67.5 inches 5'7.50" Weight 220.00 lb Heart Rate 58 /min BP Systolic 116 mmHg BP Diastolic 62 mmHg Respiratory Rate 14 /min O2 % BldC Oximetry 97 % BMI (Body Mass Index) 33.9 kg/m2 08/19/2015 10:42am Height 67.5 inches 5'7.50" Weight 222.00 lb Heart Rate 56 /min BP Systolic Sitting 124 mmHg BP Diastolic Sitting 70 mmHg Body Temperature 97.7 F Pain Level 1 BMI (Body Mass Index) 34.3 kg/m2 07/02/2015 10:24am Height 67.5 inches 5'7.50" Weight 215.00 lb Heart Rate 55 /min BP Systolic Sitting 126 mmHg BP Diastolic Sitting 62 mmHg Respiratory Rate 14 /min O2 % BldC Oximetry 98 % BMI (Body Mass Index) 33.2 kg/m2 06/19/2015 10:01am Height 67.5 inches 5'7.50" Heart Rate 64 /min BP Systolic Sitting 122 mmHg BP Diastolic Sitting 60 mmHg Respiratory Rate 14 /min Pain Level 2 06/04/2015 1:34pm Height 67.5 inches 5'7.50" Weight 215.12 lb Heart Rate 60 /min BP Systolic Sitting 106 mmHg BP Diastolic Sitting 90 mmHg Respiratory Rate 14 /min Pain Level 0 BMI (Body Mass Index) 33.2 kg/m2 04/30/2015 10:17am Height 69 inches 5'9" Weight 221.00 lb Heart Rate 72 /min BP Systolic 142 mmHg BP Diastolic 80 mmHg Respiratory Rate 14 /min O2 % BldC Oximetry 98 % BMI (Body Mass Index) 32.6 kg/m2 02/06/2015 1:22pm Height 69 inches 5'9" Heart Rate 48 /min BP Systolic 140 mmHg BP Diastolic 67 mmHg Respiratory Rate 12 /min O2 % BldC Oximetry 98 % 12/24/2014 2:28pm Height 69 inches 5'9" Weight 215.00 lb Heart Rate 52 /min BP Systolic Sitting 134 mmHg BP Diastolic Sitting 78 mmHg O2 % BldC Oximetry 98 % BMI (Body Mass Index) 31.7 kg/m2 10/18/2014 9:20am Height 69 inches 5'9" Weight 221.00 lb Heart Rate 65 /min BP Systolic Sitting 136 mmHg BP Diastolic Sitting 74 mmHg Body Temperature 97.3 F O2 % BldC Oximetry 97 % BMI (Body Mass Index) 32.6 kg/m2 Neck Circumference in inches 17 12/12/2013 2:49pm Height 69 inches 5'9" Weight 204.00 lb Heart Rate 56 /min BP Systolic Sitting 148 mmHg BP Diastolic Sitting 60 mmHg Respiratory Rate 16 /min BMI (Body Mass Index) 30.1 kg/m2 09/29/2013 9:57am Height 69 inches 5'9" Weight 199.00 lb Heart Rate 60 /min BP Systolic Sitting 120 mmHg BP Diastolic Sitting 60 mmHg Respiratory Rate 16 /min BMI (Body Mass Index) 29.4 kg/m2 Results Test Date Facility Test Result H/L Range Note Comp Metabolic 12/08/2016 [facility] Sodium 139 mmol/L Normal 133-145 Panel [address] [place], [place] [id number] [phone] Potassium 4.3 mmol/L Normal 3.5-5.0 Chloride 104 mmol/L Normal 101-111 Co2 Carbon Dioxide 26 mmol/L Normal 22-32 Anion Gap 9 mmol/L Normal 2-11 Glucose 120 mg/dL High 70-100 Blood Urea Nitrogen 49 mg/dL High 6-24 Creatinine 1.59 mg/dL High 0.67-1.17 BUN/Creatinine Ratio 30.8 High 8-20 Calcium 8.9 mg/dL Normal 8.6-10.3 Total Protein 6.1 g/dL Low 6.4-8.9 Albumin 3.7 g/dL Normal 3.2-5.2 Globulin 2.4 g/dL Normal 2-4 Albumin/Globulin Ratio 1.5 Normal 1-3 Total Bilirubin 0.40 mg/dL Normal 0.2-1.0 Alkaline Phosphatase 67 U/L Normal 34-104 Alt 11 U/L Normal 7-52 Ast 16 U/L Normal 13-39 Egfr Non- 43.0 Normal >60 Egfr 55.3 Normal >60 1 Laboratory 12/08/2016 [facility] Free T4 (Free 1.02 Normal 0.61-1.12 test finding [address] Thyroxine) ng/[place] [address] [phone] TSH (Thyroid Stim Horm) 1.58 mcIU/mL Normal 0.34-5.60 T3 Total 0.79 ng/mL Low 0.87-1.78 Vitamin B12 341 pg/mL Normal 180-914 2 Hemoglobin A1c (Glyco HGB) 6.6 % High Less than 6.0 3 Laboratory test 08/14/2015 [facility] C Reactive 2.50 mg/L Normal < 5.00 [address] [place] [address] [phone] Vitamin D Total 25(Oh) 23.2 ng/mL Low 30-50 Erythrocyte Sed Rate 26 mm/Hr Normal 0-40 Laboratory test 06/04/2015 [facility] Angiotensin 27 U/L Normal 8 - [address] [place] [address] Enzyme [phone] C Reactive Protein 18.03 mg/L High < 5.00 6 Cyclic Citrullinated Pep Igg <15.6 U Normal 7 Erythrocyte Sed Rate 46 mm/Hr High 0-40 8 Hla B27 06/04/2015 [facility] Hla B27 Negative Normal [address] [place] [address] [phone] Hla B27 Interp See Comment Normal 10 Laboratory test 06/04/2015 [facility] Lyme Disease Negative Normal Negative [address] [place] [place] [address] [phone] Uric Acid 6.8 mg/dL Normal 4.4-7.6 12 Creatine Kinase(CK) 45 U/L Normal 10-223 13 Celiac Panel 06/04/2015 [facility] Tissue <1.2 U/mL Normal [address] [place] [address] Ab [phone] Immunoglobulin A 268 mg/dL Normal 61 - 356 Celiac Interpretation See Comment Normal 15 Laboratory test 06/04/2015 [facility] Vitamin B12 380 pg/mL Normal 180-914 [address] [place], [place] [id number] [phone] Vitamin D 1,25 06/04/2015 [facility] Vitamin D 11.4 ng/mL Low 30-50 17 And Vitamin D,[address] Total 25(Oh) [place] [address] [phone] Vitamin D, 1,25 Dihydroxy 32 pg/mL Normal 18-64 18 Laboratory 06/04/2015 [facility] TSH (Thyroid 1.44 Normal 0.34 -5.60 19 test finding [address] Stim Horm) ?IU/[place] [address] [phone] 1 Because ethnic data is not always readily available, this report includes an eGFR for both -Americans and non- Americans. The National Kidney Disease Education Program (NKDEP) does not endorse the use of the MDRD equation for patients that are not between the ages of 18 and 70, are , have extremes of body size, muscle mass, or nutritional status, or are non- or non-. According to the National Kidney Foundation, irrespective of diagnosis, the stage of the disease is based on the level of kidney function: Stage Description GFR(mL/min/1.73 m(2)) 1 Kidney damage with normal or decreased GFR 90 2 Kidney damage with mild decrease in GFR 60-89 3 Moderate decrease in GFR 30-59 4 Severe decrease in GFR 15-29 5 Kidney failure <15 (or dialysis) 2 Normal Range 180 to 914 Indeterminate Range 145 to 180 Deficient Range <145 3 Therapeutic target for the treatment of diabetes Mellitus patients is <7% HBA1C, and in selective patients <6.0%.Please refer to [place] [employer] Diabetic care guidelines for further information. 4 Acute inflammation: >10.00 5 Test Performed by: [place] [address] Forging Die Finisher: Ken Serrano II, M.D., Ph.D. 6 Acute inflammation: >10.00 7 REFERENCE VALUE <20.0 (Negative) Test Performed by: [place] [address] Forging Die Finisher: Ken Serrano II, M.D., Ph.D. 8 this week please 9 REFERENCE VALUE Not Applicable 10 RESULT: HLA-B27 antigen was not detected. ADDITIONAL INFORMATION Method: Flow Cytometry Performing Laboratory CLIA# [id number] Test Performed by: [place] [address] Forging Die Finisher: Ken Serrano II, M.D., Ph.D. 11 Serologic response to B. burgdorferi infection is not detected, but cannot rule out early infection during which low or undetectable antibody levels to B. burgdorferi may be present. If clinically indicated, a new serum specimen should be submitted in 7-14 days. Test Performed by: [place] [address] Forging Die Finisher: Ken Serrano II, M.D., Ph.D. 12 this week please 13 this week please 14 REFERENCE VALUE <4.0 (Negative) Test Performed by: [place] [address] Forging Die Finisher: Ken Serrano II, M.D., Ph.D. 15 Negative serology. Celiac disease unlikely. However, approximately 10% of patients with celiac disease are seronegative. Also, patients who are already adhering to a gluten-free diet may be seronegative. If celiac disease is highly clinically suspected, consider HLA-DQ typing. Test Performed by: [place] [address] Forging Die Finisher: Ken Serrano II, M.D., Ph.D. 16 Normal Range 180 to 914 Indeterminate Range 145 to 180 Deficient Range <145 17 this week please 18 Test Performed by: [place] [address] Forging Die Finisher: Ken Serrano II, M.D., Ph.D. 19 this week please Procedures Date Code Description Status 09/01/2017 51475 EKG Tracing & Interpretation Completed 08/17/2017 72932 Polysomnography Sleep Staging 4+ Parameters W/Cpap Completed 07/24/2017 82210 Event Monitor/Phys Review/Interp. Completed 07/23/2017 09725 Stress Test Completed 07/23/2017 37394 Myocardial Perfusion Imaging Tomographic (Spect) Completed Multiple Studies 06/20/2017 14912 ECHO Transthorasic Realtime 2D W Doppler & Color Flow Completed Hosp 12/03/2015 24900028 Colonoscopy Completed 01/07/2015 85968006 Colonoscopy Completed 12/03/2014 47624 Sleep Study Unattended,HRT Rate,Oxygen Sat,Resp Completed Effort/Airflow 04/27/2014 45795481 Colonoscopy Completed 09/13/2013 27324 Color Flow Doppler/Interp & Reprt Completed 09/13/2013 31245 Pulse Wave/Continuous-Interp.RPT Completed 09/13/2013 99205 Echocardiography, Transesophageal, Real Time W/Image 2D Completed W/W/O M-M 08/28/2013 06424 Holter Monitoring 24 HR New Completed 08/25/2013 19855 ECHO Transthoracic, Real-Time 2D With Doppler And Color Completed Flow 08/21/2013 [id number] Mammogram Completed 03/27/2013 74951 Stress Test Completed 03/27/2013 66435 Myocardial Perfusion Imaging Tomographic (Spect) Completed Multiple Studies 04/13/2002 80587039 Colonoscopy Completed Encounters Type Date Location Provider Dx Diagnosis Office Visit 06/08/2018 Lei Orlando F03.91 Unspecified 11:15a Services Of Arti Lovell M.D. dementia with behavioral disturbance I67.9 Cerebrovascular disease, unspecified Office Visit 02/07/2018 10:30a Lei [place] F03.91 Unspecified Services Of Arti Lovell M.D. dementia with behavioral disturbance I67.9 Cerebrovascular disease, unspecified Office Visit 11/24/2017 11:15a Lei [place] Z86.73 Prsnl hx of TIA Services Of Arti Lovell M.D. (TIA), and cereb infrc w/o resid deficits I48.0 Paroxysmal atrial fibrillation F03.91 Unspecified dementia with behavioral disturbance Office Visit 09/01/2017 11:15a [facility] Bridger Campuzano R55 Syncope and Of Arti Ho M.D. collapse R00.1 Bradycardia, unspecified Office Visit 06/20/2017 1:19p [facility] Jeane Jones, R55 Syncope and Assoc,madhu Wheeler collapse Hospitalists F03.90 Unspecified dementia without behavioral disturbance Z86.73 Prsnl hx of TIA (TIA), and cereb infrc w/o resid deficits Office Visit 06/19/2017 4:10p [facility] Sb Garcia R00.1 Bradycardia, Of Arti Deleon M.D., unspecified FACC, FASNC R55 Syncope and collapse Office Visit 06/19/2017 7:00a [facility] R55 Syncope and Liam Brown collapse Office Visit 06/18/2017 1:18p [facility] Assoc,pc Sid Campuzano R55 Syncope and Hospitalists wayne Venegas M.D.,FACP F03.90 Unspecified dementia without behavioral disturbance Z86.73 Prsnl hx of TIA (TIA), and cereb infrc w/o resid deficits Office Visit 05/19/2017 [facility] Stephanie G47.33 Obstructive 11:15a Services Of Arti Fan DNP, sleep apnea RN, FELICE-GERDA (adult) (pediatric) Office Visit 03/22/2017 [facility] [place] [place] G31.84 Mild cognitive 9:00a David Lovell M.D. impairment, so stated I67.9 Cerebrovascular disease, unspecified G47.33 Obstructive sleep apnea (adult) (pediatric) Office Visit 01/18/2017 [facility] Clifton [place] I69.318 Other symptoms 8:45a Services Of Arti Lovell M.D. and signs w cogn fnctns fol cerebral infrc Office Visit 12/07/2016 [facility] [place] [place] G31.84 Mild cognitive 10:30a David Lovell M.D. 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 C-reactive protein (CRP) R70.0 Elevated erythrocyte sedimentation rate E55.9 Vitamin D deficiency, unspecified Office Visit 09/03/2015 Pulmonology And Stephanie G47.33 Obstructive sleep 11:00a Sleep Services Of CARMEN Fan RN, apnea (adult) [facility] (pediatric) Office Visit 08/19/2015 Rheumatology Luke Ramsey, M17.12 Unilateral 10:40a Services Of Arti Wheeler primary osteoarthritis, left knee R79.82 Elevated C-reactive protein (CRP) R70.0 Elevated erythrocyte sedimentation rate E55.9 Vitamin D deficiency, unspecified M17.0 Bilateral primary osteoarthritis of knee Office Visit 07/02/2015 Pulmonology And Stephanie G47.33 Obstructive sleep 10:15a Sleep Services Of CARMEN Fan RN, apnea (adult) [facility] (pediatric) E66.09 Other obesity due to excess calories Office Visit 06/19/2015 Rheumatology Luke R70.0 Elevated 9:40a Services Of Arti Ramsey M.D. 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 R20.8 Other disturbances of skin sensation Office Visit 04/30/2015 Pulmonology And Stephanie G47.33 Obstructive sleep 10:15a Sleep Services Of CARMEN Fan RN, apnea (adult) [facility] (pediatric) Office Visit 02/06/2015 Pulmonology And Christy Keenan G47.33 Obstructive sleep 1:30p Sleep Services Of MD apnea (adult) [facility] (pediatric) E66.09 Other obesity due to excess calories Office Visit 12/24/2014 2:30p Pulmonology And Christy G47.33 Obstructive sleep Sleep Services Of MD Shlomo apnea (adult) [facility] (pediatric) E66.09 Other obesity due to excess calories Office Visit 10/18/2014 9:30a Pulmonology And Christy 780.50 Sleep Disturbance Sleep Services Of MD Shlomo Unspec [facility] 786.09 Dyspnea & Respiratory Abnormalities Other 780.79 Malaise And Fatigue Other Office Visit 12/12/2013 [facility] [place] [place] 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 Intracerebral Hospitalists 401.9 Hypertension Unspec 272.0 Hypercholesterolemia Pure [facility] Hem[facility] 12:52p madhu Avila M.D. Intracerebral Hospitalists 401.9 Hypertension Unspec 272.0 Hypercholesterolemia Pure Office Visit 09/12/2013 9:12a [facility] Cl[place] Hemorrhage Services Of [facility] Liam Lovell Intracerebral E934.2 Antigoagulants Adverse Effects Office Visit 12/30/2009 10:00a Orthopedic Tracey 354.0 Carpal Tunnel Services Of Liam Hale Syndrome C.M.A. Plan of Treatment Future Appointment(s):02/21/2019 11:45 am - Clifton Lovell M.D. at [facility] Services Of [facility]10/18/2018 - Clifton Lovell M.D.I67.9 Cerebrovascular disease, unspecifiedFollow up:4 fhkmshL63.91 Unspecified dementia with behavioral disturbanceRecommendations:increase serequel to 25 mg in the AM and 50 mg at night stop donepezil
--- NOTE | 2018-10-26 20:11 | HP ---
CC: Dr. Sera Tao; Dr. Jerald Jj; Jarek Guthrie NP * ADMISSION HISTORY AND PHYSICAL: DATE OF ADMISSION: 10/26/18 PRIMARY CARE DOCTOR: Dr. Sera Tao. MY ATTENDING PHYSICIAN WHILE IN THE HOSPITAL: Dr. Elizabeth Nelson.* (DICTATED BY TOMEKA DREW) CONSULTING NEUROLOGIST: Dr. Jerald Jj. CHIEF COMPLAINT: Right-sided weakness x2 days. HISTORY OF PRESENT ILLNESS: Mr. Mondragon is 73-year-old male with past medical history significant for multiple embolic strokes with significant residual deficits including expressive and receptive aphasia, right-sided weakness, ambulatory dysfunction, and significant dementia who presents to the emergency department with his after on the day before admission the patient was in [place] on vacation and could not initially lift up his right leg and had very strong difficulty ambulating with listing to the right. 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 However, the patient when he woke up this morning had persistent right-sided weakness and eversion of the right foot with ambulation, which is a new ambulation pattern for him, but general improvement in the strength in his leg. Due to concern for ongoing symptoms, the brought him into the hospital. The patient has been feeling in his normal state of health recently. The patient recently had his Aricept stopped due to the concern for GI side effects and his Seroquel increased at bedtime due to concern for behaviors. The patient's had an episode of sore throat and cough last week, but the patient has not had any consistent symptoms. The patient has not had any wheezing, shortness of breath. No complaints of pain with urination. No complaints of chest pain, nausea, vomiting. The patient has intermittent diarrhea, which is attributed to his Aricept, but has not had any increased frequency of this. The patient has not been more lethargic than he normally is. The patient has not missed any doses of medication. The patient is generally rather lethargic as for ambulation and very poor memory. In the emergency department, the patient was seen in consultation by Dr. Brian Jj of Neurology, who did not see any impressive focal deficits on exam. The brain CT was not revealing. The patient's EKG shows normal sinus rhythm. Due to concern for recurrent stroke versus recrudescence, we are asked to evaluate the patient for admission to the hospital. PAST MEDICAL HISTORY: History of embolic strokes presumed due to AFib; hypertension; gout; hyperlipidemia; dementia, presumably vascular; diabetes mellitus type 2; peripheral vascular disease; anxiety; depression; paroxysmal atrial fibrillation; chronic kidney disease. PAST SURGICAL HISTORY: Right popliteal bypass in 2013. MEDICATIONS: 1. Metformin 500 mg p.o. b.i.d. 1. Losartan/hydrochlorothiazide 100/12.5 one tab p.o. daily. 2. Allopurinol 300 mg p.o. daily. 3. Pradaxa 150 mg p.o. b.i.d. 4. Atenolol 25 mg p.o. daily. 5. Potassium chloride 20 mEq p.o. daily. 6. Bumex 1 mg p.o. daily. 7. Lexapro 20 mg p.o. daily. 8. Lipitor 20 mg p.o. daily. 9. Lantus 32 units subcutaneous daily. 10. Vitamin D 5000 units p.o. daily. 11. VESIcare 10 mg p.o. daily. 12. Seroquel 25 mg mg p.o. q.a.m., 50 mg q.p.m. ALLERGIES: SULFA, INDOMETHACIN FAMILY HISTORY: The patient's father of kidney failure. The patient's mother of sepsis related to colon cancer surgery. The patient's brother with melanoma. SOCIAL HISTORY: The patient quit smoking in 2012 at the time of his bypass. He was a heavy smoker for his entire adult life before that. The patient quit drinking 10 years ago after the suicide of his son. The patient denies any illicit drug use. The patient used to work as a pharmacist. The patient is and had 3 children, 2 of them are still alive and well. REVIEW OF SYSTEMS: A 14-point review of systems was reviewed and is negative except as above in the HPI. PHYSICAL EXAMINATION GENERAL: The patient is a 73-year-old male who appears stated age, sitting comfortably in bed, in no acute distress. VITAL SIGNS: Temperature 97.8, pulse rate 69, respiratory rate 16, oxygen saturation 100% on room air, blood pressure 138/114. HEENT: Head: Normocephalic, atraumatic. Sclerae anicteric. No conjunctival injection. Nasal mucosa moist. Oral mucosa moist. No pharyngeal erythema, discharge, or exudate. NECK: Supple, nontender. No lymphadenopathy. No carotid bruits auscultated. No JVD. RESPIRATORY: Clear to auscultation bilaterally. No wheezes, rhonchi, or rales. Good air exchange bilaterally. HEART: Regular rate and rhythm. No clicks, murmurs, gallops, or rubs. Pulses are 2+ in bilateral dorsalis pedis, posterior tibialis, and radial areas. ABDOMEN: Soft, nontender, nondistended. Bowel sounds present and normoactive in all 4 quadrants. No hepatosplenomegaly. No abdominal bruits auscultated. No hepatojugular reflux. GENITOURINARY: No suprapubic or CVA tenderness. NEUROLOGIC: Alert, oriented only to self. Cranial nerves II through XII grossly intact. Diffuse weakness. No focal deficits. Alert. SKIN: Clean, dry, and intact. No rash. PSYCHIATRIC: Pleasant and cooperative. DIAGNOSTIC STUDIES/LAB DATA: White blood cell count 9.4, hemoglobin 11.6, hematocrit 35, platelet count 202. Sodium 138, potassium 3.9, chloride 105, carbon dioxide 25, anion gap 8, BUN 39, creatinine 1.63, glucose 109, calcium 9.0. Bilirubin 0.5, AST 15, ALT 9, alkaline phosphatase 67. Troponin 0.01. Protein 6.5, albumin 3.8, globulin 2.7. Studies: EKG shows normal sinus rhythm. No hypertrophy or enlargement, rate of 63, QTc of 418, single PVC, prolonged AL. Compared to previous exam, there are no significant changes. Brain CT read as no acute intracranial abnormality, old right-sided infarcts. ASSESSMENT AND PLAN: Mr. Mondragon is 73-old-male with a past medical history significant for multiple embolic strokes leaving strongly residual deficits including right-sided weakness and aphasia as well as dementia, diabetes mellitus type 2, and paroxysmal atrial fibrillation who presented to the emergency department with weakness on his right side x2 days. The patient is currently back to his presumed baseline. The patient will be admitted to the hospital for transient ischemic attack workup. 1. Right-sided weakness. The patient's right-sided weakness appear likely due to a recurrent transient ischemic attack. The patient has risk factors for both embolic and thrombotic strokes. The patient has severe peripheral vascular disease, diabetes. The patient is a long smoker. We will check A1c and lipid profile for risk stratification. We will continue the patient on Pradaxa, will not start aspirin or Plavix at this time unless there is stronger concern for thrombotic stroke, in which case aspirin may be considered to be added. This may represent recrudescence if the patient's previous neurologic deficits and workup for occult infection will be undertaken including urinalysis and chest x-ray pending at this time, antibiotics are not indicated empirically without obvious infectious source as well as suspicion for seizure and postictal state given the time of the patient's symptoms. The patient has been seen in consultation by Dr. Brian Jj. The patient will be monitored on telemetry and echocardiogram will be obtained to look for patent foramen ovale as well carotid ultrasound, the patient has known carotid stenosis from this year. 2. Dementia. The patient has vascular dementia. Supportive care while in the hospital, continue the patient's Seroquel. If the patient has no other source for his new-onset weakness, decrease in his Seroquel might be indicated back to previous level. 3. Diabetes mellitus type 2. Continue the patient's metformin and Lantus while in the hospital. No sliding scale insulin will be ordered. The patient' s blood sugar is currently elevated. 4. Hypertension. The patient is currently normotensive. Continue the patient' s atenolol and hydrochlorothiazide/losartan and Bumex. 5. Peripheral vascular disease. Continue the patient's statin and Pradaxa. 6. Chronic kidney disease. The patient is at baseline. 7. Gout. Continue the patient on allopurinol. 8. Hyperlipidemia. Continue the patient's statin. 9. FEN. The patient will have a regular heart healthy diet, consistent carbohydrate without caffeine. 10. DVT prophylaxis. The patient is on Pradaxa, it will be continued. 11. Disposition. The patient will be admitted for observation in the hospital. TIME SPENT: Approximately 60 minutes was spent on admission of this patient, 30 of which was spent [id number] with the patient obtaining history and physical and discussing treatment plan. This plan was discussed with my attending, Dr. Elizabeth Nelson, and she is in agreement. TOMEKA DREW [id number]/[facility] #: [id number] [facility]ONX HOSPITALAlondra
[2018-10-26] MEDS: metFORMIN* 500 MG TAB PO SCH (20:26)
[2018-10-26] MEDS: CMCS:Dabigatran CAP(NF) 150 MG CAP PO SCH (20:26)
[2018-10-26] MEDS ORDERED: QUEtiapine TAB* 25 MG PO SCH (21:00)
[2018-10-26] MEDS ORDERED: Atorvastatin* 20 MG TAB PO SCH (21:00)
[2018-10-26] MEDS ORDERED: Escitalopram * 20 MG TABLET PO SCH (21:00)
[2018-10-26] MEDS ORDERED: CMCS:Solifenacin(NF) 5 MG TAB PO SCH (21:00)
[2018-10-27 05:23] LABS: ABS Basophils 0.1 10^3/ul (0-0.2); ABS Eosinophils 0.3 10^3/ul (0-0.6); ABS Lymphocytes 2.9 10^3/ul (1.0-4.8); ABS Monocytes 0.6 10^3/ul (0-0.8); ABS Neutrophils 4.6 10^3/ul (1.5-7.7); Eosinophil % 3.8 %; Hematocrit 33 % (42-52); Lymphocyte % 34.1 %; Mean Corpuscular HGB Conc 34 g/dL (31-36); Mean Corpuscular Hemoglobin 32 pg (27-31); Mean Corpuscular Volume 95 fL (80-94); Mean Platelet Volume 8.3 fL (7.4-10.4); Nucleated Red Blood Cells % 0.1; Platelet Count 189 10^3/uL (150-450); Red Blood Count 3.43 10^6 /uL (4.18-5.48); Red Cell Distribution Width 16 % (10-15); White Blood Count 8.5 10^3/uL (3.5-10.8)
[2018-10-27 05:51] LABS: BUN/Creatinine Ratio 24.4 (8-20); C Reactive Protein 7.24 mg/L (<8.01); Calcium 8.4 mg/dL (8.6-10.3); EGFR African American 44.9 (>60); EGFR Non-African American 37.1 (>60); HDL Cholesterol 22.5 mg/dL; Magnesium 1.8 mg/dL (1.9-2.7); Potassium 3.7 mmol/L (3.5-5.0)
--- NOTE | 2018-10-27 08:24 | PN ---
Subjective Date of Service: 10/27/18 Length of Stay: 1 Days Interval History: Pt examined today at the bedside. He has a history of dementia and significant expressive and receptive aphasia from previous CVA. He responds yes or no to all questions. Review of Systems: Unable to be obtained given his aphasia and dementia, Objective Active Medications: Acetaminophen (Tylenol Tab*) 650 mg PO Q6H PRN PRN Reason: MILD PAIN or TEMP > 100.4 Allopurinol (Zyloprim Tab*) 300 mg PO QAM [facility] Atenolol (Tenormin Tab*) 25 mg PO QAM [facility] Atorvastatin Calcium (Lipitor*) 20 mg PO BEDTIME [facility] Last Admin: 10/26/18 20:26 Dose: 20 mg Bumetanide (Bumex Tab*) 1 mg PO EVERY OTHER DAY [facility] Cyanocobalamin (Vitamin B12 Tab*) 1,000 mcg PO DAILY [facility] Dabigatran (Pradaxa Cap(Nf)) 150 mg PO BID [facility] Last Admin: 10/26/18 20:26 Dose: 150 mg Escitalopram Oxalate (Lexapro *) 20 mg PO BEDTIME [facility] Last Admin: 10/26/18 20:26 Dose: 20 mg Hydrochlorothiazide (Hydrodiuril Tab*) 12.5 mg PO QAM [facility] Insulin Glargine (Lantus(*)) 32 units SUBCUT QAM [facility] Losartan Potassium (Cozaar Tab*) 100 mg PO QAM [facility] Metformin HCl (Glucophage*) 500 mg PO BID [facility] Last Admin: 10/26/18 20:26 Dose: 500 mg Ondansetron HCl (Zofran Inj*) 4 mg IV Q6H PRN PRN Reason: NAUSEA Potassium Chloride (Klor Con Er Tab*) 10 meq PO QAM [facility] Quetiapine Fumarate (Seroquel Tab*) 25 mg PO DAILY [facility] Quetiapine Fumarate (Seroquel Tab*) 50 mg PO BEDTIME [facility] Last Admin: 10/26/18 20:26 Dose: 50 mg Solifenacin (Vesicare(Nf)) 10 mg PO BEDTIME [facility] Last Admin: 10/26/18 20:26 Dose: 10 mg Vital Signs 10/26/18 10/26/18 10/26/18 13:12 13:50 13:51 Temperature 97.8 F Pulse Rate 65 57 56 Respiratory 14 7 13 Rate Blood Pressure 109/48 140/56 (mmHg) O2 Sat by Pulse 97 96 97 Oximetry 10/26/18 10/26/18 10/26/18 14:00 14:21 14:51 Temperature Pulse Rate Respiratory 15 14 18 Rate Blood Pressure 115/71 133/73 (mmHg) O2 Sat by Pulse Oximetry 10/26/18 10/26/18 10/26/18 15:00 15:22 16:00 Temperature Pulse Rate 49 Respiratory 26 15 15 Rate Blood Pressure 138/114 (mmHg) O2 Sat by Pulse 98 Oximetry 10/26/18 10/26/18 10/26/18 17:06 17:31 17:57 Temperature 98.5 F 97.2 F 97.0 F Pulse Rate 49 53 52 Respiratory 16 16 18 Rate Blood Pressure 138/114 147/61 145/50 (mmHg) O2 Sat by Pulse 98 98 100 Oximetry 10/26/18 10/26/18 10/26/18 19:41 23:34 23:45 Temperature 97.4 F 97.7 F Pulse Rate 55 55 Respiratory 18 16 Rate Blood Pressure 124/50 127/42 118/52 (mmHg) O2 Sat by Pulse 100 97 Oximetry 10/27/18 10/27/18 03:49 04:00 Temperature 97.4 F Pulse Rate 56 Respiratory 15 Rate Blood Pressure 129/48 122/48 (mmHg) O2 Sat by Pulse 99 Oximetry Intake and Output Last 24 Hours 10/25/18 10/26/18 10/27/18 10/28/18 06:59 06:59 06:59 06:59 Intake Total 0 Balance 0 Weight 211 lb Intake: Oral 0 Other: Estimated Void Large # Voids 1 Oxygen Devices in Use Now: None Neurology Exam: General: Well nourished, well developed, and in no acute distress HEENT: Normocephelic/atraumatic, sclera anicteric, mucous membranes moist Neck: Supple Chest: Clear to auscultation bilaterally Cardiovascular: Regular rate and rhythm without murmurs, rubs, gallops Abdomen: Soft, non-tender/non-distended Extremities: No clubbing, cyanosis, or edema Neurological Findings: Awake, alert to self only, Speech: marked expressive and receptive aphasia, Cranial Nerve: PERRL, EOM intact, unable to perform Visual castro at this point , no nystagmus, face symmetric bilaterally, facial sensation intact, hearing intact to finger rub bilaterally, palate elevates symmetrically, tongue midline , SCM and Trapezius 5/5. Motor: 5/5 strength throughout distally and proximally, increased tone in the lower and upper extremities worse on the right, Sensation: intact to LT bilaterally upper and lower extremities Deep Tendon Reflex: 2+ symmetric in the upper/lower extremities, Babinski - down going unable to perform finger to nose or HANNAH at this point, given dementia, Result Diagrams: 10/27/18 05:05 10/27/18 05:05 Assessment/Plan 73 y/o male patient with a history of dementia, cva, afib, pvd, dm, presenting to [facility] [place] on 10/26 with complaints of worsening right sided weakness from his baseline, RUE/RLE weakness: I suspect he had recrudescence of his previous stroke symptoms I have asked for a UA this morning. MRI negative for new infarct, carotid u/s shows now 50- 69 percent stenosis in the right and less than 50 percent stenosis in the left which is unchanged, echo pending, I would continue his pradaxa for now, and statin therapy, goal LDL less than 70, I would strive for good DM control and good BP control going forward, his recrudescence may have been related to his recent medication change or perhaps underlying infection, Dementia Aricept recently stopped due to Gi symptoms, would continue supportive care and outpatient neurology follow up, for now would continue seroquel DM per hospitalist CKD per hospitalist PVD continue statin continue follow up with vascular surgeron HLD goal LDL less than 700 HTN stable continue home medications Plan going forward await UA treat as appropriate, await echo to r/o thrombus he had a CHARLES in 2013 with no PFO, if echo negative, neurology will sign off at this point, will need follow up in 6-8 weeks with Primary neurologist Dr oLvell
[2018-10-27] MEDS ORDERED: Dextrose 50% VIAL 50 ml IV PUSH PRN (08:44)
[2018-10-27] MEDS ORDERED: Atenolol TAB* 25 MG PO SCH (09:00)
[2018-10-27] MEDS ORDERED: Hydrochlorothiazide TAB* 25 MG PO SCH (09:00)
[2018-10-27] MEDS ORDERED: Cyanocobalamin TAB* 500 MCG PO SCH (09:00)
[2018-10-27] MEDS ORDERED: Potassium Chlor TAB* 10 MEQ TAB.ER PO SCH (09:00)
[2018-10-27] MEDS ORDERED: Allopurinol TAB* 300 MG PO SCH (09:00)
[2018-10-27] MEDS ORDERED: Losartan TAB* 25 MG PO SCH (09:00)
[2018-10-27] MEDS ORDERED: QUEtiapine TAB* 25 MG PO SCH (09:00)
[2018-10-27] MEDS ORDERED: Insulin GLARGINE(*) 1 UNITS UNIT SUBCUT SCH (09:00)
[2018-10-27] MEDS: CMCS:Dabigatran CAP(NF) 150 MG CAP PO SCH (09:07)
[2018-10-27] MEDS: metFORMIN* 500 MG TAB PO SCH (09:10)
[2018-10-27 09:56] LABS: Urine Appearance Clear; Urine Bacteria Absent (Absent); Urine Bilirubin Negative (Negative); Urine Blood 2+ (Negative); Urine Color Yellow; Urine Glucose Negative (Negative); Urine Ketones Negative (Negative); Urine Nitrite Negative (Negative); Urine Protein Negative (Negative); Urine Red Blood Cell 2+(6-10/hpf) (Absent); Urine Specific Gravity 1.012 (1.010-1.030); Urine Urobilinogen Negative (Negative); Urine White Blood Cell Absent (Absent)
[2018-10-27] MEDS ORDERED: Perflutren Lipid Microsphere* 3 ML VIAL ONE (10:09)
[2018-10-27] MEDS: Insulin LISPRO* 1 UNITS UNIT SUBCUT SCH ×2 (12:15→17:32)
[2018-10-27 18:26] VITALS: BP 125/54
--- NOTE | 2018-10-27 21:03 | DS ---
CC: Dr. Lovell; Dr. Tao * DISCHARGE SUMMARY: DATE OF ADMISSION: 10/26/18 DATE OF DISCHARGE: 10/27/18 PRIMARY CARE PROVIDER: Dr. Tao. PRINCIPAL DIAGNOSIS: Right-sided weakness of unclear etiology. SECONDARY DIAGNOSES: 1. History of embolic stroke secondary to atrial fibrillation. 2. Hypertension. 3. Gout. 4. Hyperlipidemia. 5. Dementia. 6. Type 2 diabetes. 7. Peripheral vascular disease. 8. Anxiety/depression. 9. Chronic kidney disease. DISCHARGE MEDICATIONS: 1. Metformin 500 mg p.o. b.i.d. 2. Seroquel 25 mg p.o. daily and 50 mg at bedtime. 3. Align 4 mg p.o. daily. 4. Probiotic 1 cap p.o. daily. 5. VESIcare 10 mg p.o. q.h.s. 6. Lantus 32 units subcutaneous daily. 7. Vitamin D3 5000 units p.o. q.h.s. 8. Lexapro 20 mg p.o. q.h.s. 9. Bumex 1 mg p.o. every other day. 10. Lipitor 20 mg p.o. q.h.s. 11. Potassium chloride 10 mEq p.o. daily. 12. Pradaxa 150 mg p.o. b.i.d. 13. Atenolol 25 mg p.o. daily. 14. Losartan/hydrochlorothiazide 100/12.5 one tab p.o. daily. 15. Allopurinol 300 mg p.o. daily. HOSPITAL COURSE: Mr. Mondragon is a 73-year-old male who has a history of past CVAs ; atrial fibrillation, on Pradaxa; type 2 diabetes; dementia; depression and anxiety, who presented to the emergency room with complaints of right-sided weakness x2 days. The patient was noted to not be able to lift his right leg and be lifting to the right when trying to walk. On the day of admission, the right-sided weakness persisted to some extent and there was abnormal placement of the foot while ambulating and therefore, the patient's brought him to the emergency room for evaluation. The patient was admitted to rule out new CVA which was done with CT of the brain and MRI of the brain. The MRI of the brain revealed no evidence for acute or subacute ischemic infarcts or other acute intracranial process. There was an old right middle cerebral infarct at the right frontal lobe, smaller regions of encephalomalacia at the right parietal and occipital lobes and stigmata of chronic small vessel ischemic disease and involutional change. The patient also underwent transthoracic echocardiogram, revealed normal systolic function with an EF of 70% to 75% and wall motion is normal. There were no significant valvular abnormalities. There is no change from the June 2017 study. The patient was seen in consultation by Jarek Guthrie for Neurology. It is felt that his symptoms were likely a recrudescence of his old stroke given no new findings. He will continue Pradaxa and statin therapy. He will continue with optimal blood sugar and blood pressure control. The patient should follow up in 6 to [address] Lovell. On the day of discharge, the patient is awake, he is alert, he is sitting in a chair, in no acute distress. His vital signs are stable. Cardiac exam revealed a normal S1, S2 with a regular rate and rhythm. Lungs are clear. Abdomen is soft, nontender, nondistended. Musculoskeletal: The patient moves all 4 extremities symmetrically. Neuro: Exam appears to be intact and normal throughout outside of the patient's baseline confusion. FOLLOWUP CONCERNS: The patient is being discharged home today, 10/27/18. Activity level is as tolerated. Diet is diabetic, heart healthy. CONDITION ON DISCHARGE: Stable. The patient is to follow up with Dr. Lovell in the next 6 to [address] Tao in the next 4 to 7 days. TIME SPENT: 35 minutes was spent discharging this patient. [id number]/[facility] #: [id number] MTDAlondra
[2018-10-28] MEDS ORDERED: Bumetanide TAB* 1 MG PO SCH (09:00)
== END 2018-10-27 18:20 | disposition home or self-care (01) ==
LOC: ED 13:09 → MEDTELE 16:10
PROVIDERS: ADMIT Hospitalist; ATTEND Hospitalist
DX: M62.81 Muscle weakness (generalized) (principal); I69.320 Aphasia following cerebral infarction; I48.91 Unspecified atrial fibrillation; I12.9 Hypertensive chronic kidney disease with stage 1 through stage 4 chronic kidney disease, or unspecified chronic kidney disease; E11.22 Type 2 diabetes mellitus with diabetic chronic kidney disease; N18.9 Chronic kidney disease, unspecified; M10.9 Gout, unspecified; E78.5 Hyperlipidemia, unspecified; F03.90 Unspecified dementia, unspecified severity, without behavioral disturbance, psychotic disturbance, mood disturbance, and anxiety; Z79.4 Long term (current) use of insulin; I73.9 Peripheral vascular disease, unspecified; F32.9 Major depressive disorder, single episode, unspecified; F41.9 Anxiety disorder, unspecified; Z79.899 Other long term (current) drug therapy; Z79.01 Long term (current) use of anticoagulants; Z87.891 Personal history of nicotine dependence; Z88.2 Allergy status to sulfonamides; I25.10 Atherosclerotic heart disease of native coronary artery without angina pectoris; E78.00 Pure hypercholesterolemia, unspecified; Z95.820 Peripheral vascular angioplasty status with implants and grafts; I49.3 Ventricular premature depolarization
CPT/HCPCS: 36415; 70450; 70551; 71045; 80048; 80053; 80061; 81003; 81015; 82607; 83036; 83735; 84484; 85025; 86140; 87086; 93005; 93306; 93880; 99284; A9270-GY; C8929; G0378; G8978-GP-CJ; G8979-GP-CI